=== PATIENT | female | born 1950 | race Caucasian/White ===

== ENCOUNTER → 2018-04-08 13:57 | Outpatient (CLI) | payer MEDICARE, BC, SELFPAY | PROVIDERS: PCP Internal Medicine; Visit Provider Internal Medicine | DX: M85.852 Other specified disorders of bone density and structure, left thigh (principal); Z78.0 Asymptomatic menopausal state | CPT/HCPCS: 77080 ==

== ENCOUNTER → 2018-10-03 08:15 | Outpatient (CLI) | payer MEDICARE, BC, SELFPAY ==
[2018-10-03 09:44] LABS: Alanine Aminotransferase 33 IU/L (9-52); Aspartate Aminotransferase 22 IU/L (14-36); Blood Urea Nitrogen 21 mg/dL (7-17); Calcium 10.2 mg/dL (8.4-10.2); Carbon Dioxide 29 mmol/L (22-32); Chloride 102 mmol/L (98-107); Cholesterol 193 mg/dL (140-199); Glucose 96 mg/dL (80-110); HDL Cholesterol 69 mg/dL (40-60); HEMOLYSIS < 15 (0-50); LDL Cholesterol Calculated 103 mg/dL (<100); Potassium 4.7 mmol/L (3.4-5.1); Sodium 141 mmol/L (137-145); Triglycerides 103 mg/dL (35-150)
== END ==
PROVIDERS: PCP Internal Medicine; Visit Provider Internal Medicine
DX: R73.01 Impaired fasting glucose (principal); E78.5 Hyperlipidemia, unspecified
CPT/HCPCS: 36415; 80048; 80061; 84450; 84460

== ENCOUNTER → 2018-12-04 11:38 | Outpatient (CLI) | payer MEDICARE, BC, SELFPAY ==
--- NOTE | 2018-12-04 | DI.MG.S_ITS ---
BILATERAL DIGITAL SCREENING MAMMOGRAM 3D/2D WITH CAD: 12/04/2018 Comparison is made to exams dated: 09/03/2017 mammogram, 03/22/2016 mammogram, and 03/21/2015 mammogram - [facility]. The tissue of both breasts is predominantly fatty. Current study was also evaluated with a Computer Aided Detection (CAD) system. No significant masses, calcifications, or other findings are seen in either breast. There has been no significant interval change. IMPRESSION: NEGATIVE There is no mammographic evidence of malignancy. A 1 year screening mammogram is recommended. This exam was interpreted at Station ID: [id number]. NOTE: For mammograms, a report in lay terms will be sent to the patient. Approximately 15% of breast malignancies will not be visualized mammographically. In the management of a palpable breast mass, a negative mammogram must not discourage biopsy of a clinically suspicious lesion. Electronically Signed By: Theo suarez/osmin:12/04/2018 13:06:50 copy to: Giselle Jacob MD, [facility] letter sent: Normal Exam ACR BI-RADS Category 1: Negative 3341F
== END ==
PROVIDERS: PCP Internal Medicine; Visit Provider Internal Medicine
DX: Z12.31 Encounter for screening mammogram for malignant neoplasm of breast (principal)
CPT/HCPCS: 77063; 77067

== ENCOUNTER → 2019-07-30 14:39 | Outpatient (ROUT) | payer MEDICARE, BC, SELFPAY ==
[2019-07-30 15:05] LABS: Alanine Aminotransferase 27 IU/L (<35); Aspartate Aminotransferase 30 IU/L (14-36); Cholesterol 185 mg/dL (140-199); HDL Cholesterol 65 mg/dL (40-60); LDL Cholesterol Calculated 102 mg/dL (<100); Triglycerides 91 mg/dL (35-150)
== END ==
PROVIDERS: PCP Internal Medicine; Visit Provider Internal Medicine
DX: E78.5 Hyperlipidemia, unspecified (principal)
CPT/HCPCS: 80061; 84450; 84460

== ENCOUNTER → 2021-01-09 10:35 | Outpatient (CLI) | payer MEDICARE, BC, SELFPAY ==
--- NOTE | 2021-01-09 10:36 | DI.MG.S_ITS ---
BILATERAL DIGITAL SCREENING MAMMOGRAM 3D/2D WITH CAD: 01/09/2021 CLINICAL: Routine screening. Comparison is made to exams dated: 12/04/2018 mammogram - [facility], 09/03/2017 mammogram, 03/22/2016 mammogram, and 03/21/2015 mammogram - [facility]. There are scattered fibroglandular elements in both breasts. Current study was also evaluated with a Computer Aided Detection (CAD) system. No significant masses, calcifications, or other findings are seen in either breast. There has been no significant interval change. IMPRESSION: NEGATIVE There is no mammographic evidence of malignancy. A 1 year screening mammogram is recommended. This exam was interpreted at Station ID: [id number]. NOTE: For mammograms, a report in lay terms will be sent to the patient. Approximately 15% of breast malignancies will not be visualized mammographically. In the management of a palpable breast mass, a negative mammogram must not discourage biopsy of a clinically suspicious lesion. Electronically Signed By: Kashmir pearson/osmin:01/09/2021 11:45:24 copy to: Giselle Jacob MD, [facility] letter sent: Normal Exam ACR BI-RADS Category 1: Negative 3341F
== END ==
PROVIDERS: PCP Internal Medicine; Referring Provider Internal Medicine; Visit Provider Internal Medicine
DX: Z12.31 Encounter for screening mammogram for malignant neoplasm of breast (principal)
CPT/HCPCS: 77063; 77067

== ENCOUNTER → 2021-12-13 08:14 | Outpatient (CLI) | payer MEDICARE, BC, SELFPAY ==
[2021-12-13 09:20] LABS: Add Manual Diff / Slide Review NO; Basophils Absolute Auto 100 /uL (0-100); Basophils Percent Auto 0.7 % (0-2); Eosinophils Absolute Auto 100 /uL (0-450); Eosinophils Percent Auto 0.8 % (2-4); Hematocrit 38.7 % (36-46); Hemoglobin 13.3 g/dL (12.0-16.0); Lymphocytes Absolute Auto 1600 /uL (1100-4500); Lymphocytes Percent Auto 19.8 % (25-40); Mean Corpuscular HGB Conc 34.5 % (30-36); Mean Corpuscular Volume 95.6 fL (80-100); Monocytes Absolute Auto 500 /uL (0-900); Monocytes Percent Auto 5.9 % (3-14); Neutrophils Absolute Auto 5900 /uL (1500-7000); Neutrophils Percent Auto 72.8 % (50-75); Platelet Count 230 X10^3/uL (150-400); Red Blood Cell Count 4.04 X10^6/uL (4.0-5.2); Red Cell Distribution Width 12.9 % (11.6-14.8); White Blood Cell Count 8.1 X10^3/uL (4.5-11.0)
[2021-12-13 10:01] LABS: Alanine Aminotransferase 43 IU/L (<35); Albumin 4.3 g/dL (3.5-5.0); Albumin Globulin Ratio 1.7 (1.0-2.8); Alkaline Phosphatase 57 U/L (38-126); Aspartate Aminotransferase 27 IU/L (14-36); BUN Creatinine Ratio 17.5 (6-22); Bilirubin Total 0.8 mg/dL (0.2-1.3); Blood Urea Nitrogen 14 mg/dL (7-17); Calcium 9.9 mg/dL (8.4-10.2); Carbon Dioxide 29 mmol/L (22-32); Chloride 102 mmol/L (98-107); Cholesterol 179 mg/dL (140-199); Estimated Glomerular Filt Rate > 60.0 mL/min (>60); Globulin 2.5 g/dL (1.7-4.1); Glucose 109 mg/dL (80-110); HDL Cholesterol 63 mg/dL (40-60); HEMOLYSIS < 15 (0-50); LDL Cholesterol Calculated 95 mg/dL (<100); Potassium 4.1 mmol/L (3.4-5.1); Sodium 138 mmol/L (137-145); Total Protein 6.8 g/dL (6.3-8.2); Triglycerides 105 mg/dL (35-150); VLDL Cholesterol Calculated 21 mg/dL (2-30)
[2021-12-13 10:21] LABS: Thyroid Stimulating Hormone 1.43 uIU/mL (0.47-4.68)
== END ==
PROVIDERS: Family Provider Family Medicine; PCP Internal Medicine; Referring Provider Family Medicine; Visit Provider Family Medicine
DX: Z13.6 Encounter for screening for cardiovascular disorders (principal); Z13.29 Encounter for screening for other suspected endocrine disorder; Z13.228 Encounter for screening for other metabolic disorders; Z13.0 Encounter for screening for diseases of the blood and blood-forming organs and certain disorders involving the immune mechanism
CPT/HCPCS: 36415; 80053; 80061; 84439; 84443; 85025

== ENCOUNTER → 2022-01-11 15:19 | Outpatient (CLI) | payer MEDICARE, BC, SELFPAY ==
--- NOTE | 2022-01-11 | DI.MG.S_ITS ---
BILATERAL DIGITAL SCREENING MAMMOGRAM 3D/2D WITH CAD: 01/11/2022 CLINICAL: Routine screening. Comparison is made to exams dated: 01/09/2021 mammogram, 12/04/2018 mammogram - [facility], and 09/03/2017 [facility]. There are scattered fibroglandular elements in both breasts. Current study was also evaluated with a Computer Aided Detection (CAD) system. No significant masses, calcifications, or other findings are seen in either breast. There has been no significant interval change. IMPRESSION: NEGATIVE There is no mammographic evidence of malignancy. A 1 year screening mammogram is recommended. This exam was interpreted at Station ID: [id number]. NOTE: For mammograms, a report in lay terms will be sent to the patient. Approximately 15% of breast malignancies will not be visualized mammographically. In the management of a palpable breast mass, a negative mammogram must not discourage biopsy of a clinically suspicious lesion. Electronically Signed By: Omar Singh M.D., jr/osmin:01/11/2022 15:46:43 copy to: Giselle Jacob MD, [facility] letter sent: Normal Exam ACR BI-RADS Category 1: Negative 3341F
== END ==
PROVIDERS: Family Provider Family Medicine; PCP Internal Medicine; Referring Provider Family Medicine; Visit Provider Family Medicine
DX: Z12.31 Encounter for screening mammogram for malignant neoplasm of breast (principal)
CPT/HCPCS: 77063; 77067

== ENCOUNTER → 2023-01-12 | Outpatient (CLI) | payer MEDICARE, BC, SELFPAY ==
--- NOTE | 2023-01-12 | DI.MG.S_ITS ---
BILATERAL DIGITAL SCREENING MAMMOGRAM 3D/2D WITH CAD: 01/12/2023 CLINICAL: Routine screening. Family history of breast cancer. Comparison is made to exams dated: 01/11/2022 mammogram, 01/09/2021 mammogram, and 12/04/2018 mammogram - [facility]. Both breasts are almost entirely fatty (category a/<25% glandular tissue). Current study was also evaluated with a Computer Aided Detection (CAD) system. No significant masses, calcifications, or other findings are seen in either breast. There has been no significant interval change. IMPRESSION: NEGATIVE There is no mammographic evidence of malignancy. A 1 year screening mammogram is recommended. Based on the Tyrer Cuzick model (a risk assessment model) the patient's lifetime risk is 2.5% and her 10 year risk is 2.1%. According to the ACR, ACS, and NCCN guidelines, an annual breast MRI exam along with mammogram is recommended if the patient's lifetime risk is 20% or greater. This exam was interpreted at Station ID: [id number]. NOTE: For mammograms, a report in lay terms will be sent to the patient. Approximately 15% of breast malignancies will not be visualized mammographically. In the management of a palpable breast mass, a negative mammogram must not discourage biopsy of a clinically suspicious lesion. Electronically Signed By: Radha solorzano/osmin:01/14/2023 11:57:23 copy to: Giselle Jacob MD, [facility] letter sent: Normal Exam ACR BI-RADS Category 1: Negative 3341F
== END ==
PROVIDERS: Family Provider Family Medicine; PCP Internal Medicine; Referring Provider Family Medicine; Visit Provider Family Medicine
DX: Z12.31 Encounter for screening mammogram for malignant neoplasm of breast (principal); Z80.3 Family history of malignant neoplasm of breast
CPT/HCPCS: 77063; 77067

== ENCOUNTER → 2023-02-26 10:27 | Outpatient (CLI) | payer MEDICARE, BC, SELFPAY ==
--- NOTE | 2023-02-26 | DI.RAD.S_ITS ---
PROCEDURE: XR SHOULDER RT MIN 2V INDICATIONS: SHOULDER PAIN TECHNIQUE: 3 views of the shoulder were acquired. COMPARISON: None. FINDINGS: Bones: No fractures or dislocations. No suspicious bony lesions. Visualized ribs appear intact. Soft tissues: No suspicious soft tissue calcifications. IMPRESSION: Unremarkable right shoulder radiographs Approved by: Duy Navas M.D. on 02/26/2023 at 10:32
--- NOTE | 2023-02-26 | DI.RAD.S_ITS ---
PROCEDURE: XR LUMBAR SPINE 2-3V INDICATIONS: BACK PAIN TECHNIQUE: 3 views of the lumbar spine were acquired. COMPARISON: None. FINDINGS: Bones: 5 [id number] vertebrae are present. There is normal bony alignment. No vertebral body compression fractures. No suspicious bony lesions. Disc space narrowing hypertrophic facet joints noted in the mid to lower lumbar spine Soft tissues: Overlying bowel gas pattern is normal. No suspicious soft tissue calcifications. Text atherosclerotic vascular calcification. Surgical clips noted in the right upper quadrant. IMPRESSION: Degenerative disc disease and arthropathy without fracture or if significant malalignment Approved by: Duy Navas M.D. on 02/26/2023 at 10:36
== END ==
PROVIDERS: Family Provider Family Medicine; PCP Internal Medicine; Referring Provider Internal Medicine; Visit Provider Internal Medicine
DX: M51.36 Other intervertebral disc degeneration, lumbar region (principal); M47.816 Spondylosis without myelopathy or radiculopathy, lumbar region; M25.511 Pain in right shoulder; M54.50 Low back pain, unspecified
CPT/HCPCS: 72100; 73030

== ENCOUNTER → 2023-04-23 11:08 | Outpatient (CLI) | payer MEDICARE, BC, SELFPAY ==
--- NOTE | 2023-04-23 11:46 | DI.DEXA.S_ITS ---
Bone Density Report Name: RENE BONDS Age: 72 Sex: Female Ethnicity: White Date of : 1950 Indication: postmenopausal; screening for osteoporosis; Referring Provider: ARASH LAZO Study: Bone densitometry was performed. Exam Date: April 23, 2023 Accession number: [id number] Bone Density: Region BMD T-score Z-score Classification AP Spine(L1-L4) 0.981 -0.6 1.7 Normal Femoral Neck (Left) 0.722 -1.1 0.9 Osteopenia Total Hip (Left) 0.754 -1.5 0.2 Osteopenia Femoral Neck (Right) 0.673 -1.6 0.4 Osteopenia Total Hip (Right) 0.788 -1.3 0.4 Osteopenia Total Hip Mean 0.771 -1.4 0.3 Osteopenia World Health Organization criteria for BMD impression classify patients as: Normal (T-score at or above -1.0), Osteopenia (T-score between -1.0 and -2.5), or Osteoporosis (T-score at or below -2.5). 10-year Fracture Risk(1): Major Osteoporotic Fracture 10% Hip Fracture 1.8% Reported Risk Factors: [place] (), Neck BMD=0.673, BMI=32.6 (1) FRAX(R) Version 3.08. Fracture probability calculated for an untreated patient. Fracture probability may be lower if the patient has received treatment. Previous Exams: -- Region Exam Age BMD T-score BMD Change BMD Change Date g/cm2 vs Baseline vs Previous -- AP Spine (L1-L4) 04/23/2023 72 0.981 -0.6 -0.109 (-10.0%)# -0.109 (-10.0%)# 04/08/2018 67 1.089 0.4 Total Hip(Left) 04/23/2023 72 0.754 -1.5 -0.066 (-8.1%)# -0.066 (-8.1%)# 04/08/2018 67 0.820 -1.0 Total Hip(Right) 04/23/2023 72 0.788 -1.3 -0.077 (-8.9%)# -0.077 (-8.9%)# 04/08/2018 67 0.865 -0.6 -- *Denotes significance at 95% confidence level, LSC for AP Spine = 0.022 g/cm2, LSC for Total Hip = 0.027 g/cm2 # Denotes dissimilar scan types or analysis methods Impression: The patient has low bone mass, based on the Right Femoral Neck T-score. The patient has an estimated ten-year risk of hip fracture of 1.8% and an estimated ten-year risk of major fracture of 10%, based on the WHO FRAX algorithm. No significant bone loss was observed. Discussion: BONE DENSITY IS LOW AT ONE OR MORE SKELETAL SITES. This patient's lowest T-score is low at one or more skeletal sites. It meets the World Health Organization's (WHO) criteria for ?low bone mass? (T-score between -1.0 and -2.5). The patient's 10-year risk of fracture as calculated by FRAX is less than the threshold where pharmacological therapy is recommended by the National Osteoporosis Foundation (NOF). However, all treatment decisions require clinical judgment and consideration of individual patient factors, including patient preferences, comorbidities, previous drug use, risk factors not captured in the FRAX model (e.g., frailty, falls, vitamin D deficiency, increased bone turnover, interval significant decline in bone density) and possible under or overestimation of fracture risk by FRAX. The patient should follow a healthful lifestyle (good nutrition with adequate calcium and vitamin D, and appropriate weight-bearing exercise). Follow-Up: Consider repeating this study in 2 to 3 years to reassess this patient's status, or sooner if there is some new clinical indication. Reported by: MARIAH LANDRY M.D. on 04/23/2023 11:58:00 AM.
== END ==
PROVIDERS: Family Provider Family Medicine; PCP Internal Medicine; Referring Provider Family Medicine; Visit Provider Family Medicine
DX: Z78.0 Asymptomatic menopausal state (principal); Z13.820 Encounter for screening for osteoporosis; M85.851 Other specified disorders of bone density and structure, right thigh
CPT/HCPCS: 77080

== ENCOUNTER → 2024-01-15 11:17 | Outpatient (CLI) | payer MEDICARE, OTHER, SELFPAY ==
--- NOTE | 2024-01-15 11:20 | DI.MG.S_ITS ---
BILATERAL DIGITAL SCREENING MAMMOGRAM 3D/2D WITH CAD: 01/15/2024 CLINICAL: Routine screening. Family history of breast cancer. Comparison is made to exams dated: 01/12/2023 mammogram, 01/11/2022 mammogram, and 01/09/2021 mammogram - [facility]. Both breasts are almost entirely fatty (category a/<25% glandular tissue). Current study was also evaluated with a Computer Aided Detection (CAD) system. No significant masses, calcifications, or other findings are seen in either breast. There has been no significant interval change. IMPRESSION: NEGATIVE There is no mammographic evidence of malignancy. A 1 year screening mammogram is recommended. Based on the Tyrer Cuzick model (a risk assessment model) the patient's lifetime risk is 2.4% and her 10 year risk is 2.1%. According to the ACR, ACS, and NCCN guidelines, an annual breast MRI exam along with mammogram is recommended if the patient's lifetime risk is 20% or greater. This exam was interpreted at Station ID: [id number]. NOTE: For mammograms, a report in lay terms will be sent to the patient. Approximately 15% of breast malignancies will not be visualized mammographically. In the management of a palpable breast mass, a negative mammogram must not discourage biopsy of a clinically suspicious lesion. Electronically Signed By: Hiwot santos/osmin:01/15/2024 12:44:03 letter sent: Normal Exam ACR BI-RADS Category 1: Negative 3341F
== END ==
PROVIDERS: Family Provider Family Medicine; PCP Internal Medicine; Referring Provider Internal Medicine; Visit Provider Internal Medicine
DX: Z12.31 Encounter for screening mammogram for malignant neoplasm of breast (principal); Z80.3 Family history of malignant neoplasm of breast; R92.313 Mammographic fatty tissue density, bilateral breasts
CPT/HCPCS: 77063; 77067

== ENCOUNTER → 2024-08-24 13:26 | Outpatient (CLI) | payer MEDICARE, SELFPAY ==
[2024-08-24 13:58] LABS: Add Manual Diff / Slide Review NO; Basophils Absolute Auto 100 /uL (0-100); Basophils Percent Auto 1.4 % (0-2); Eosinophils Absolute Auto 100 /uL (0-450); Eosinophils Percent Auto 1.1 % (2-4); Hematocrit 41.8 % (36-46); Lymphocytes Absolute Auto 2000 /uL (1100-4500); Lymphocytes Percent Auto 26.6 % (25-40); Mean Corpuscular HGB Conc 33.4 % (30-36); Mean Corpuscular Hemoglobin 31.5 PG (26-34); Mean Corpuscular Volume 94.3 fL (80-100); Monocytes Absolute Auto 500 /uL (0-900); Neutrophils Absolute Auto 4800 /uL (1500-7000); Neutrophils Percent Auto 63.9 % (50-75); Platelet Count 281 X10^3/uL (150-400); Red Blood Cell Count 4.43 X10^6/uL (4.0-5.2); White Blood Cell Count 7.5 X10^3/uL (4.5-11.0)
[2024-08-24 14:19] LABS: C-Reactive Protein Quant < 0.5 mg/dL (<1.0)
[2024-08-24 15:04] LABS: Erythrocyte Sedimentation Rate 23 MM/HR (0-20)
[2024-08-27 23:36] LABS: Immunoglobulin E 16 IU/mL (6-495)
== END ==
PROVIDERS: Family Provider Family Medicine; PCP Internal Medicine; Referring Provider Physician Assistant; Visit Provider Physician Assistant
DX: T78.40XA Allergy, unspecified, initial encounter (principal)
CPT/HCPCS: 36415; 82785; 83520; 85025; 85651; 86140

== ENCOUNTER 2025-07-07 10:45 | Outpatient (RCR) | payer MEDICARE, SELFPAY ==
--- NOTE | 2025-04-30 14:42 | ST.OPIE ---
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 Abraham Rea, ENT Reason for Referral Dysphagia; hoarseness Setting Assessment Location Outpatient Care Visit Type Note Type Initial evaluation Next Note Type Next Note Type Treatment Note Patient Information Identification Type Name History Pt is a 74 year old female seen this date for swallow/ voice evaluation by the referral of Dr. Rea. She is accompanied by her . Pt reports she has noticed changes to her voice and swallow within the past 6 months. Specifically, she states her voice box is changing and sounds muffled and yuval. She reports increased difficulty swallowing, especially during the day and with washer operator textures such as meat. She states she has lost about 60 pounds in the past 6 years and 15 pounds this year. 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 She also has a history of Asthma, and GERD and takes Omeprazole daily. Pt reports her goals for therapy are to improve her swallow and voice quality. Subjective Pt transferred via wheelchair d/t her reporting back/ Observations neck pains, frozen shoulders and neuropathy in her feet and hands. She is following up with a Neurologist. Pt lives with her . Reported by Patient/Caregiver Other Symptoms Choking,Coughing,Difficulty swallowing pills,Difficulty swallowing solids,Food gets stuck Current Diet Regular (IDDSI 7) Baseline Feeding Independent in self-feeding Method The IDDSI Framework Protocol: IDDSI.1 Objective Assessment Mental Status Alert,Responsive,Cooperative Oral Integrity WFL Dentition Within normal limits Lip Function Within normal limits Observation of Lips Symmetrical at Rest Pucker Within normal limits Lip Retraction Within normal limits Alternating Pucker/ Within normal limits Lip Retraction Observations of Within normal limits Tongue at Rest Tongue Protrusion Within normal limits Tongue Retraction Within normal limits Jaw Function Within normal limits Observation of Jaw Within normal limits at Rest Jaw Opening Within normal limits Jaw Closing Within normal limits Nasality Within normal limits Respiratory Within normal limits Sufficiency Food and Liquid Trials Position During Upright (90 degrees) Assessment Liquids Trialed Thin (IDDSI 0) Solid Trials Soft & Bite-sized (IDDSI 6) Administration Type Self-feeding Oral Impairment Within functional limits Oral Phase Comments Pt did not consume priti cracker/saltine d/t her reporting they would be too dry and get stuck in her throat. She reports she always needs water to clear food stuck in her throat and feels like there's a shelf in her throat they get stuck on. Pt consumed diced peaches and about 4 oz of thin water via cup. For peaches, she exhibited adequate bite size and rate, adequate mastication and bolus formation, timely ap transport. For thin liquids via cup, Pt exhibited single cup sips, alternating liquids/solids, good oral acceptance and containment. Pharyngeal Mildly impaired Impairment Pharyngeal Phase Pt exhibited 1x cough reflex post swallow of water and Comments stated this only happens when she is talking and eating /drinking at the same time. For peaches, she exhibited audible swallow reflex, multiple swallows, globus sensation reported x1 cleared with liquid wash, throat clear x1. Fatigue/Endurance Endurance WNL The IDDSI Framework Protocol: IDDSI.1 Findings Swallowing Function Pharyngeal phase dysphagia Severity of Swallow Mildly-moderately impaired Impairment Prognosis Good Based on Family support Recommendations Instrumental Yes Assessment Swallowing Treatment Yes Frequency 1x/week Duration 3 months Recommended Solids Regular (IDDSI 7) Recommended Liquids Thin (IDDSI 0) Other ST recommends regular solids and thin liquids, or per Recommendations Pt tolerance. ST educated Pt on options to cut pills in half or get liquid versions. ST educated Pt and her on recommendation for her to have Modified Barium Swallow (MBS) test and what the next steps for that are, which include ST contacting her PCP for an order and then getting the test scheduled. ST recommended they proceed with treatment once MBS is completed. ST also educated Pt on safe swallow strategies and GERD precautions. Pt and her verbalized understanding. Safety Precautions/ Remain upright (90 degrees) during all oral intake, Swallowing Upright position at least 30 minutes after meals,Small Recommendations bites and sips when eating,Slow rate; swallow between bites,Alternate liquids and solids Medication As Tolerated Recommendations Discharge Home Recommendations Education Patient/Caregiver Described results of evaluation,Patient expressed Education understanding of evaluation,Patient expressed agreement with goals & treatment plans,Family/caregivers expressed understanding of evaluation,Family/caregivers expressed agreement with goals & treatment plans, Patient requires further education/training,Family/ caregivers require further education/training Goals Short-term Goals STG 1: Pt will participate in MBS to further guide POC. Long-term Goals LTG 1: Patient will consume safest and most efficient least restrictive diet with no clinical s/s of aspiration or dysphagia 100% of the time in order to meet primary nutrition/hydration needs.
--- NOTE | 2025-04-30 14:42 | ST.OPPOC ---
Physical, Occupational & Speech Therapy At [facility] Visit Care Team Role Provider Type Poppy Ng MD Primary Care Provider Physician Address: [place], [address] Abraham Rea MD Attending Provider Physician Referring Provider Address: [address] [place] [address], [id number] Speech Pathology Plan of Care Plan of Care Dates 04/30/25-07/31/[address] Abraham Rea, ENT Patient History Pt is a 74 year old female seen this date for swallow/voice evaluation by the referral of Dr. Rea. She is accompanied by her . Pt reports she has noticed changes to her voice and swallow within the past 6 months. Specifically, she states her voice box is changing and sounds muffled and yuval. 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 She states she has lost about 60 pounds in the past 6 years and 15 pounds this year. 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 She also has a history of Asthma, and GERD and takes Omeprazole daily. Pt reports her goals for therapy are to improve her swallow and voice quality. Short-term Goals STG 1: Pt will participate in MBS to further guide POC. Long-term Goals LTG 1: Patient will consume safest and most efficient least restrictive diet with no clinical s/s of aspiration or dysphagia 100% of the time in order to meet primary nutrition/ hydration needs. Comment: Electronically Signed by: TYSON Gipson 04/30/25 4231 If you are in agreement with this Plan of Care, please return a signed and dated copy. I have reviewed this Plan of Care and certify that the skilled therapy services above are required to meet the patient?s needs. Physician Signature Date Printed Name and Credentials Clinical Instructor Signature Printed Name and Credentials
--- NOTE | 2025-05-20 12:06 | ST.IPDYTX ---
Visit Care Team Role Provider Type Poppy Ng MD Primary Care Provider Physician Specialty: Internal Medicine Address: [place], [address] Email: Abraham Rea MD Attending Provider Physician Referring Provider Specialty: Ear, Nose, Throat Address: [address] [place] [address] [place], [address] Email: [email or web address] DIRECTOR SALES [employer]ETING Dysphagia Treatment DIRECTOR [employer] MARKETING Dysphagia Treatment Start: 05/20/25 11:44 Freq: Status: Active Protocol: Document 05/20/25 11:44 MA (Rec: 05/20/25 12:06 MA Desktop) Dysphagia Treatment Session Time Visit Start Time 10:45 Visit Stop Time 11:25 Total Visit Minutes 40 Visit Information Visit Number 2 Plan of Care Dates 04/30/25-07/31/25 Setting Assessment Location Outpatient Care Next Note Type Next Note Type Treatment Note Patient Information Subjective Pt transferred via wheelchair d/t her reporting back/ Observations neck pains, frozen shoulders and neuropathy in her feet and hands. Pt is accompanied by her . Pt was a little emotional at the beginning of the session, characterized by her crying, d/t her reporting she saw the Neurologist yesterday and is getting a work up for ALS. Pt reports she will be having an EMG and MRI done, as well as seeing a Longshore Equipment Operator. Treatment Treatment Activities ST reviewed MBS results with patient, which was completed 05/13. Please see report for more details. ST educated Pt on swallow exercises to complete as part of home exercise program and safe swallowing exercises. The IDDSI Framework Protocol: IDDSI.1 Assessment Patient Response to Excellent Treatment Rehab Potential Excellent Assessment of ST educated Pt on hyolaryngeal swallow exercises in Improvement order to strengthen base of tongue, improve UES opening and epiglottic inversion. ST instructed Pt on Kanchan, effortful swallow, Antionette, and chin tuck against resistance. Pt able to demonstrate back with 100% accuracy. ST recommended Pt purchase neck slimmer online for CTAR exercises, or utilize a rubber ball or towels balled up under chin. Pt reports she has been utilizing chin tuck at home when drinking liquids, which helps with clearance. She states she has been losing weight d/t eating being exhausting, however working on not losing more weight and has purchased some protein powder. She inquired about a mold dresser and recommended she talk with her PCP. Pt reports she has an appointment with a GI doctor to discuss UES dilatation on 05/28. ST educated Pt on additional safe swallowing strategies, such as slow rate, small bites, alternating liquids/solids and remaining upright for at least [address] educated Pt on plan to initiate Neuromuscular Electrical Stimulation (NMES) during next session to strengthen pharyngeal muscles. Pt verbalized understanding. Recommendations Recommendations Continue Current Diet Liquids Order Thin (IDDSI 0) Diet Order Regular (IDDSI 7) Medication As Tolerated Recommendations
--- NOTE | 2025-06-30 13:37 | ST-OP ANOTE ---
Physical, Occupational & Speech Therapy At [facility] Speech Therapy Note Pt No Showed this date. ST called Pt who reports she forgot about today's appointment and has had to cancel other appointments because of a bad reaction to a new medication. She reports she most likely has ALS but has not officially been diagnosed yet. ST informed Pt of her next appointment with Pt verbally confirming.
--- NOTE | 2025-07-07 16:31 | ST.IPDYTX ---
Visit Care Team Role Provider Type Poppy Ng MD Primary Care Provider Physician Specialty: Internal Medicine Address: [place], [address] Email: Abraham Rea MD Attending Provider Physician Referring Provider Specialty: Ear, Nose, Throat Address: [address] [place] [address], [id number] Email: [email or web address] ENGINEERING PROFESSOR Dysphagia Treatment ENGINEERING PROFESSOR Dysphagia Treatment Start: 05/20/25 11:44 Freq: Status: Active Protocol: Document 07/07/25 16:16 MA (Rec: 07/07/25 16:31 MA Desktop) Dysphagia Treatment Session Time Visit Start Time 10:45 Visit Stop Time 11:25 Total Visit Minutes 40 Visit Information Visit Number 3 Plan of Care Dates 04/30/25-07/31/25 Setting Assessment Location Outpatient Care Next Note Type Next Note Type Treatment Note Patient Information Subjective Pt transferred via wheelchair d/t her reporting back/ Observations neck pains, frozen shoulders and neuropathy in her feet and hands. Pt is accompanied by her . Pt missed several appointments d/t getting sick and having a reaction to a new medication she was put on. Pt had an EMG completed, however has declined the MRI and is still waiting to see the endoscopy registered nurse. She states she will be seeing the Neurologist on 07/12 and most likely knows she has ALS, however has not been 100% confirmed . Pt reports she has come to a good place mentally and emotionally with it and is trying to enjoy life while she can. Treatment Treatment Activities Check in and review in regards to current swallow function and home swallow exercise program and going forward with therapy. The IDDSI Framework Protocol: IDDSI.1 Assessment Patient Response to Excellent Treatment Rehab Potential Excellent Assessment of Pt reports she has noticed improvements with her Improvement swallowing, especially due to her being more deliberate and aware of her swallow and eating slowly. No PO trials at this time d/t majority of treatment time checking in and reviewing swallow exercises. However, Pt with occasional audible swallow reflex one saliva. Pt reports she has been doing her swallowing exercises, and notices improvements with Kanchan exercise. She states discomfort with CTAR with ST advising Pt to not continue exercise if she is experiencing pain or discomfort. ST recommended she continue with home exercise program involving swallow exercises. ST educated Pt on plan to initiate Neuromuscular Electrical Stimulation (NMES) during next session to strengthen pharyngeal muscles. Pt verbalized understanding. Recommendations Recommendations Continue Current Diet Liquids Order Thin (IDDSI 0) Diet Order Regular (IDDSI 7) Medication As Tolerated Recommendations Comments No change in diet at this time - Pt currently on soft diet Referrals/Other Recommended Neurology,GI Consult Referrals
== END 2025-07-21 09:54 | disposition home or self-care (01) ==
LOC: SP 10:45
PROVIDERS: PCP Internal Medicine; Referring Provider Otolaryngology; Visit Provider Otolaryngology
DX: R13.12 Dysphagia, oropharyngeal phase (principal); R49.0 Dysphonia
CPT/HCPCS: 92526; 92610

== ENCOUNTER 2025-07-11 00:04 | Inpatient (IN) | payer MEDICARE, SELFPAY ==
--- NOTE | 2025-07-10 23:51 | ED_ITS ---
HPI - Trauma <Jason Rodríguez, DO - Last Filed: 07/11/25 17:46> General Chief Complaint: Fall Stated Complaint: GLF History of Present Illness HPI narrative: 74y female recently diagnosed with ALS, hypothyroid, asthma, dyslipidemia was going to the bathroom without her walker when she had a fall hitting her head against the floor with complaints of nausea, headache, back pain. She denies any loss of consciousness, chest pain, shortness breath, dyspnea on exertion, bowel or bladder incontinence, abdominal pain. Other than what is stated 14 point review of system is negative. Related Data Home Medications ?Medication ?Instructions ?Recorded ?Confirmed albuterol sulfate 90 mcg/actuation 1 puff inhalation O NCE 04/23/25 04/23/25 aerosol inhaler (Ventolin HFA) levothyroxine 13 mcg capsule 13 mcg PO DAILY 04/23/25 04/23/25 mometasone-formoterol HFA 200 2 puff inhalation BID 04/23/25 mcg-5 mcg/actuation aerosol inhaler (Dulera) omeprazole 20 mg tablet,delayed 20 mg PO DAILY 5 04/23/25 release propranolol 10 mg tablet 20 mg PO DAILY Essential shena mor 04/23/25 04/23/25 rosuvastatin 10 mg tablet 10 mg PO DAILY 04/23/2510/17 Allergies Allergy/AdvReac Type Severity Reaction Status Date / Time codeine Allergy Severe Anaphylaxis Verified 07/11/25 00:11 morphine AdvReac Mild Rash Verified 07/11/25 00:11 Sulfa (Sulfonamide AdvReac Mild Rash Verified 07/11/25 00:11 Antibiotics) Review of Systems <Jason Rodríguez, DO - Last Filed: 07/11/25 17:46> Review of Systems ROS Unobtainable: All systems reviewed & are unremarkable except as noted in HPI and below Patient History <Jason Rodríguez, DO - Last Filed: 07/11/25 17:46> Medical History Fasciculations Tremor Ataxic gait Atrophy of muscle of both hands Weakness Paresthesia Social History household members: spouse alcohol intake: never Exam <Jason Rodríguez DO - Last Filed: 07/11/25 17:46> Narrative Exam Narrative: GENERAL: [74] year old patient appears stated age. Well-developed patient, in mild distress. HEAD: Atraumatic. Normocephalic. EYES: Pupils equal round and reactive. Extraocular motions intact. No scleral icterus. No injection or drainage. ENT: Nose without bleeding, purulent drainage. Throat without erythema, tonsillar hypertrophy or exudate. Airway patent. NECK: Trachea midline. Non tender CARDIOVASCULAR: Regular rate and rhythm without murmurs, gallops, or rubs. RESPIRATORY: Clear to auscultation. Breath sounds equal bilaterally. No wheezes, rales, or rhonchi. GASTROINTESTINAL: Abdomen soft, non-tender, nondistended. EXTREMITIES: No edema or joint tenderness. BACK: Nontender without deformity or crepitance. No flank tenderness. NEURO: AOx3. SKIN: Scalp hematoma back of head with superficial laceration but no area to suture or staple Initial Vital Signs Initial Vital Signs: Vital Signs Temperature 97.8 F 07/11/25 00:02 Pulse Rate 91 H 07/11/25 00:02 Respiratory Rate 24 07/11/25 00:02 Blood Pressure 179/86 H 07/11/25 00:02 Pulse Oximetry 95 07/11/25 00:02 Oxygen Delivery Method Room Air 07/11/25 00:02 <Bree Verdin, DO - Last Filed: 07/11/25 18:32> Initial Vital Signs Initial Vital Signs: Vital Signs Temperature 97.8 F 07/11/25 00:02 Pulse Rate 91 H 07/11/25 00:02 Respiratory Rate 24 07/11/25 00:02 Blood Pressure 179/86 H 07/11/25 00:02 Pulse Oximetry 95 07/11/25 00:02 Oxygen Delivery Method Room Air 07/11/25 00:02 Course <Jason Rodríguez, DO - Last Filed: 07/11/25 17:46> Orders Ordered: ED Orders 07/11/25 16:04 [facility] Creatine Kinase MB Routine 07/11/25 16:04 Consult to Occupational Therapy Evaluate & Treat Consult to Physical Therapy Evaluate & Treat 07/11/25 18:05 Basic Metabolic Panel Routine Complete Blood Count AUTO DIFF Routine Magnesium Routine Acetaminophen (Acetaminophen 325 Mg Tablet) 650 mg PO Q6H PRN PRN Reason: Fever/Mild Pain (1-3) Baclofen (Baclofen 10 Mg Tablet) 5 mg PO TID PRN PRN Reason: Muscle Spasm Lactated Ringer's (Lactated Ringers) 1,000 mls @ 125 mls/hr IV CONT TROY Naloxone HCl (Naloxone 0.4 Mg/Ml Vial) 0.2 mg IV Q2MIN PRN PRN Reason: Opiate Reversal Ondansetron HCl (Ondansetron 4 Mg/2 Ml Inj) 4 mg IV Q8HR PRN PRN Reason: Nausea And Vomiting Discontinued Medications Albuterol (Albuterol 2.5 Mg/3 Ml Neb (Adult)) 2.5 mg INH NOW ONE Stop: 07/11/25 02:24 Last Admin: 07/11/25 02:26 Dose: 2.5 mg Documented By: AMAYA Albuterol (Albuterol 2.5 Mg/3 Ml Neb (Adult)) 2.5 mg INH NOW ONE Stop: 07/11/25 11:16 Last Admin: 07/11/25 11:16 Dose: 2.5 mg Documented By: PEACE Albuterol/Ipratropium (Albuterol/Ipratropium 3 Ml Ampul) 3 ml INH NOW ONE Stop: 07/11/25 02:14 Last Admin: 07/11/25 02:27 Dose: Not Given Documented By: AMAYA Diphtheria/Tetanus/Acell Pertussis (Tet,Diph,Pertuss(Acell),Vac/Pf 0.5 Ml Syringe) 0.5 ml IM .ONCE ONE Stop: 07/11/25 00:15 Last Admin: 07/11/25 00:19 Dose: 0.5 ml Documented By: TOBY Hydromorphone HCl (Hydromorphone Hcl 0.5 Mg/0.5 Ml Syringe) 0.5 mg IV NOW ONE Stop: 07/11/25 00:19 Last Admin: 07/11/25 00:22 Dose: 0.5 mg Documented By: TOBY Hydromorphone HCl (Hydromorphone Hcl 0.5 Mg/0.5 Ml Syringe) 0.5 mg IV NOW ONE Stop: 07/11/25 04:07 Last Admin: 07/11/25 04:19 Dose: 0.5 mg Documented By: TOBY Sodium Chloride (Normal Saline 0.9%) 500 mls @ 1,000 mls/hr IV BOLUS ONE Stop: 07/11/25 03:44 Last Infusion: 07/11/25 04:01 Dose: Infused Documented By: Admin: 07/11/25 03:20 Dose: 1,000 mls/hr Documented By: TOBY Lactated Ringer's (Lactated Ringers) 1,000 mls @ 125 mls/hr IV CONT TROY Last Admin: 07/11/25 15:29 Dose: 125 mls/hr Documented By: Infusion: 07/11/25 15:05 Dose: Infused Documented By: Admin: 07/11/25 07:05 Dose: 125 mls/hr Documented By: TOBY Magnesium Sulfate (Magnesium Sulfate) 2 gm in 50 mls @ 25 mls/hr IV NOW ONE Stop: 07/11/25 14:08 Last Infusion: 07/11/25 16:07 Dose: Infused Documented By: CIPRIANO Co-signed By: WAGNER Admin: 07/11/25 12:34 Dose: 25 mls/hr Documented By: WARREN Co-signed By: Lorazepam (Lorazepam 2 Mg/Ml Inj) 1 mg IV NOW ONE Stop: 07/11/25 11:48 Last Admin: 07/11/25 11:50 Dose: 1 mg Documented By: WARREN Magnesium Chloride (Magnesium Chloride 64 Mg Tablet) 128 mg PO 0930 ONE Stop: 07/11/25 09:31 Last Admin: 07/11/25 11:05 Dose: Not Given Documented By: WARREN Metoclopramide HCl (Metoclopramide 10 Mg/2 Ml Inj) 10 mg IV NOW ONE Stop: 07/11/25 01:05 Last Admin: 07/11/25 01:06 Dose: 10 mg Documented By: ZAIRE Metoprolol Tartrate (Metoprolol Tartrate 5 Mg/5 Ml Inj) 5 mg IV NOW ONE Stop: 07/11/25 12:24 Last Admin: 07/11/25 16:06 Dose: Not Given Documented By: CIPRIANO Ondansetron HCl (Ondansetron 4 Mg/2 Ml Inj) 4 mg IV NOW ONE Stop: 07/11/25 00:15 Last Admin: 07/11/25 00:20 Dose: 4 mg Documented By: TOBY Prochlorperazine (Prochlorperazine 10 Mg/2 Ml Vial) 10 mg IV NOW ONE Stop: 07/11/25 04:07 Last Admin: 07/11/25 04:20 Dose: 10 mg Documented By: [facility] Vital Signs Vital signs: Vital Signs - 8 hr 07/11/25 04:04 07/11/25 04:06 07/11/25 04:08 Pulse Rate 106 H 105 H 105 H Respiratory Rate 15 16 14 Blood Pressure Pulse Oximetry 98 98 98 Oxygen Delivery Method Nasal Cannula Oxygen Flow Rate 2 07/11/25 04:10 07/11/25 04:12 07/11/25 04:14 Pulse Rate 106 H 107 H 114 H Respiratory Rate 15 19 14 Blood Pressure Pulse Oximetry 98 98 97 Oxygen Delivery Method Nasal Cannula Oxygen Flow Rate 2 07/11/25 04:15 07/11/25 04:15 07/11/25 04:16 Pulse Rate 107 H 105 H Respiratory Rate 12 13 Blood Pressure 122/58 L Pulse Oximetry 97 97 Oxygen Delivery Method Oxygen Flow Rate 07/11/25 04:18 07/11/25 04:20 07/11/25 04:20 Pulse Rate 104 H 103 H 105 H Respiratory Rate 12 12 Blood Pressure 122/58 L Pulse Oximetry 96 96 Oxygen Delivery Method Oxygen Flow Rate 07/11/25 04:22 07/11/25 04:24 07/11/25 04:26 Pulse Rate 102 H 102 H 100 H Respiratory Rate 12 12 12 Blood Pressure Pulse Oximetry 97 97 97 Oxygen Delivery Method Oxygen Flow Rate 07/11/25 04:28 07/11/25 04:30 07/11/25 04:30 Pulse Rate 101 H 102 H Respiratory Rate 12 12 Blood Pressure 116/55 L Pulse Oximetry 97 96 Oxygen Delivery Method Nasal Cannula Oxygen Flow Rate 2 07/11/25 04:32 07/11/25 04:34 07/11/25 04:36 Pulse Rate 105 H 102 H 101 H Respiratory Rate 13 14 13 Blood Pressure Pulse Oximetry 97 96 97 Oxygen Delivery Method Oxygen Flow Rate 07/11/25 04:38 07/11/25 04:40 07/11/25 04:42 Pulse Rate 101 H 104 H 103 H Respiratory Rate 14 12 14 Blood Pressure Pulse Oximetry 96 96 96 Oxygen Delivery Method Oxygen Flow Rate 07/11/25 04:44 07/11/25 04:45 07/11/25 04:45 Pulse Rate 101 H 100 H Respiratory Rate 12 12 Blood Pressure 112/55 L Pulse Oximetry 96 96 Oxygen Delivery Method Oxygen Flow Rate 07/11/25 04:46 07/11/25 04:48 07/11/25 04:50 Pulse Rate 101 H 110 H 114 H Respiratory Rate 12 16 19 Blood Pressure Pulse Oximetry 96 97 95 Oxygen Delivery Method Oxygen Flow Rate 07/11/25 04:52 07/11/25 04:54 07/11/25 04:56 Pulse Rate 106 H 119 H 127 H Respiratory Rate 12 16 18 Blood Pressure Pulse Oximetry 96 95 95 Oxygen Delivery Method Oxygen Flow Rate 07/11/25 04:58 07/11/25 05:00 07/11/25 05:01 Pulse Rate 124 H 121 H 119 H Respiratory Rate 16 20 15 Blood Pressure Pulse Oximetry 94 94 Oxygen Delivery Method Nasal Cannula Oxygen Flow Rate 2 07/11/25 05:01 07/11/25 05:02 07/11/25 05:04 Pulse Rate 115 H 114 H Respiratory Rate 16 15 Blood Pressure 152/72 H Pulse Oximetry 95 95 Oxygen Delivery Method Oxygen Flow Rate 07/11/25 05:06 07/11/25 05:08 07/11/25 05:10 Pulse Rate 113 H 121 H 117 H Respiratory Rate 18 20 21 Blood Pressure Pulse Oximetry 95 95 96 Oxygen Delivery Method Oxygen Flow Rate 07/11/25 05:12 07/11/25 05:14 07/11/25 05:15 Pulse Rate 124 H 110 H Respiratory Rate 23 22 Blood Pressure 145/65 H Pulse Oximetry 95 95 Oxygen Delivery Method Oxygen Flow Rate 07/11/25 05:15 07/11/25 05:16 07/11/25 05:18 Pulse Rate 114 H 110 H 109 H Respiratory Rate 12 12 12 Blood Pressure Pulse Oximetry 97 97 97 Oxygen Delivery Method Oxygen Flow Rate 07/11/25 05:20 07/11/25 05:22 07/11/25 05:24 Pulse Rate 104 H 112 H 115 H Respiratory Rate 15 16 18 Blood Pressure Pulse Oximetry 97 97 97 Oxygen Delivery Method Oxygen Flow Rate 07/11/25 05:26 07/11/25 05:28 07/11/25 05:30 Pulse Rate 115 H 125 H 111 H Respiratory Rate 23 15 13 Blood Pressure Pulse Oximetry 96 92 96 Oxygen Delivery Method Oxygen Flow Rate 07/11/25 05:30 07/11/25 05:32 07/11/25 05:34 Pulse Rate 106 H 104 H Respiratory Rate 14 12 Blood Pressure 136/64 Pulse Oximetry 97 97 Oxygen Delivery Method Oxygen Flow Rate 07/11/25 05:36 07/11/25 05:38 07/11/25 05:40 Pulse Rate 104 H 117 H 132 H Respiratory Rate 13 16 18 Blood Pressure Pulse Oximetry 97 97 96 Oxygen Delivery Method Oxygen Flow Rate 07/11/25 05:42 Pulse Rate 118 H Respiratory Rate 14 Blood Pressure Pulse Oximetry 97 Oxygen Delivery Method Oxygen Flow Rate <Bree Verdin, - Last Filed: 07/11/25 18:32> Orders Ordered: ED Orders 07/11/25 16:04 [facility] Creatine Kinase MB Routine 07/11/25 16:04 Consult to Occupational Therapy Evaluate & Treat Consult to Physical Therapy Evaluate & Treat 07/11/25 18:05 Basic Metabolic Panel Routine Complete Blood Count AUTO DIFF Routine Magnesium Routine Acetaminophen (Acetaminophen 325 Mg Tablet) 650 mg PO Q6H PRN PRN Reason: Fever/Mild Pain (1-3) Baclofen (Baclofen 10 Mg Tablet) 5 mg PO TID PRN PRN Reason: Muscle Spasm Lactated Ringer's (Lactated Ringers) 1,000 mls @ 125 mls/hr IV CONT TROY Naloxone HCl (Naloxone 0.4 Mg/Ml Vial) 0.2 mg IV Q2MIN PRN PRN Reason: Opiate Reversal Ondansetron HCl (Ondansetron 4 Mg/2 Ml Inj) 4 mg IV Q8HR PRN PRN Reason: Nausea And Vomiting Discontinued Medications Albuterol (Albuterol 2.5 Mg/3 Ml Neb (Adult)) 2.5 mg INH NOW ONE Stop: 07/11/25 02:24 Last Admin: 07/11/25 02:26 Dose: 2.5 mg Documented By: BLF Albuterol (Albuterol 2.5 Mg/3 Ml Neb (Adult)) 2.5 mg INH NOW ONE Stop: 07/11/25 11:16 Last Admin: 07/11/25 11:16 Dose: 2.5 mg Documented By: JZF Albuterol/Ipratropium (Albuterol/Ipratropium 3 Ml Ampul) 3 ml INH NOW ONE Stop: 07/11/25 02:14 Last Admin: 07/11/25 02:27 Dose: Not Given Documented By: BLF Diphtheria/Tetanus/Acell Pertussis (Tet,Diph,Pertuss(Acell),Vac/Pf 0.5 Ml Syringe) 0.5 ml IM .ONCE ONE Stop: 07/11/25 00:15 Last Admin: 07/11/25 00:19 Dose: 0.5 ml Documented By: RLC Hydromorphone HCl (Hydromorphone Hcl 0.5 Mg/0.5 Ml Syringe) 0.5 mg IV NOW ONE Stop: 07/11/25 00:19 Last Admin: 07/11/25 00:22 Dose: 0.5 mg Documented By: RLC Hydromorphone HCl (Hydromorphone Hcl 0.5 Mg/0.5 Ml Syringe) 0.5 mg IV NOW ONE Stop: 07/11/25 04:07 Last Admin: 07/11/25 04:19 Dose: 0.5 mg Documented By: RLKatherine Sodium Chloride (Normal Saline 0.9%) 500 mls @ 1,000 mls/hr IV BOLUS ONE Stop: 07/11/25 03:44 Last Infusion: 07/11/25 04:01 Dose: Infused Documented By: RLKatherine Admin: 07/11/25 03:20 Dose: 1,000 mls/hr Documented By: TOBY Lactated Ringer's (Lactated Ringers) 1,000 mls @ 125 mls/hr IV CONT TROY Last Admin: 07/11/25 15:29 Dose: 125 mls/hr Documented By: Infusion: 07/11/25 15:05 Dose: Infused Documented By: Admin: 07/11/25 07:05 Dose: 125 mls/hr Documented By: RLKatherine Magnesium Sulfate (Magnesium Sulfate) 2 gm in 50 mls @ 25 mls/hr IV NOW ONE Stop: 07/11/25 14:08 Last Infusion: 07/11/25 16:07 Dose: Infused Documented By: CIPRIANO Co-signed By: WAGNER Admin: 07/11/25 12:34 Dose: 25 mls/hr Documented By: SBF Co-signed By: Lorazepam (Lorazepam 2 Mg/Ml Inj) 1 mg IV NOW ONE Stop: 07/11/25 11:48 Last Admin: 07/11/25 11:50 Dose: 1 mg Documented By: SBF Magnesium Chloride (Magnesium Chloride 64 Mg Tablet) 128 mg PO 0930 ONE Stop: 07/11/25 09:31 Last Admin: 07/11/25 11:05 Dose: Not Given Documented By: SBF Metoclopramide HCl (Metoclopramide 10 Mg/2 Ml Inj) 10 mg IV NOW ONE Stop: 07/11/25 01:05 Last Admin: 07/11/25 01:06 Dose: 10 mg Documented By: ZAIRE Metoprolol Tartrate (Metoprolol Tartrate 5 Mg/5 Ml Inj) 5 mg IV NOW ONE Stop: 07/11/25 12:24 Last Admin: 07/11/25 16:06 Dose: Not Given Documented By: CIPRIANO Ondansetron HCl (Ondansetron 4 Mg/2 Ml Inj) 4 mg IV NOW ONE Stop: 07/11/25 00:15 Last Admin: 07/11/25 00:20 Dose: 4 mg Documented By: TOBY Prochlorperazine (Prochlorperazine 10 Mg/2 Ml Vial) 10 mg IV NOW ONE Stop: 07/11/25 04:07 Last Admin: 07/11/25 04:20 Dose: 10 mg Documented By: TOBY Vital Signs Vital signs: Vital Signs - 8 hr 07/11/25 04:04 07/11/25 04:06 07/11/25 04:08 Pulse Rate 106 H 105 H 105 H Respiratory Rate 15 16 14 Blood Pressure Pulse Oximetry 98 98 98 Oxygen Delivery Method Nasal Cannula Oxygen Flow Rate 2 07/11/25 04:10 07/11/25 04:12 07/11/25 04:14 Pulse Rate 106 H 107 H 114 H Respiratory Rate 15 19 14 Blood Pressure Pulse Oximetry 98 98 97 Oxygen Delivery Method Nasal Cannula Oxygen Flow Rate 2 07/11/25 04:15 07/11/25 04:15 07/11/25 04:16 Pulse Rate 107 H 105 H Respiratory Rate 12 13 Blood Pressure 122/58 L Pulse Oximetry 97 97 Oxygen Delivery Method Oxygen Flow Rate 07/11/25 04:18 07/11/25 04:20 07/11/25 04:20 Pulse Rate 104 H 103 H 105 H Respiratory Rate 12 12 Blood Pressure 122/58 L Pulse Oximetry 96 96 Oxygen Delivery Method Oxygen Flow Rate 07/11/25 04:22 07/11/25 04:24 07/11/25 04:26 Pulse Rate 102 H 102 H 100 H Respiratory Rate 12 12 12 Blood Pressure Pulse Oximetry 97 97 97 Oxygen Delivery Method Oxygen Flow Rate 07/11/25 04:28 07/11/25 04:30 07/11/25 04:30 Pulse Rate 101 H 102 H Respiratory Rate 12 12 Blood Pressure 116/55 L Pulse Oximetry 97 96 Oxygen Delivery Method Nasal Cannula Oxygen Flow Rate 2 07/11/25 04:32 07/11/25 04:34 07/11/25 04:36 Pulse Rate 105 H 102 H 101 H Respiratory Rate 13 14 13 Blood Pressure Pulse Oximetry 97 96 97 Oxygen Delivery Method Oxygen Flow Rate 07/11/25 04:38 07/11/25 04:40 07/11/25 04:42 Pulse Rate 101 H 104 H 103 H Respiratory Rate 14 12 14 Blood Pressure Pulse Oximetry 96 96 96 Oxygen Delivery Method Oxygen Flow Rate 07/11/25 04:44 07/11/25 04:45 07/11/25 04:45 Pulse Rate 101 H 100 H Respiratory Rate 12 12 Blood Pressure 112/55 L Pulse Oximetry 96 96 Oxygen Delivery Method Oxygen Flow Rate 07/11/25 04:46 07/11/25 04:48 07/11/25 04:50 Pulse Rate 101 H 110 H 114 H Respiratory Rate 12 16 19 Blood Pressure Pulse Oximetry 96 97 95 Oxygen Delivery Method Oxygen Flow Rate 07/11/25 04:52 07/11/25 04:54 07/11/25 04:56 Pulse Rate 106 H 119 H 127 H Respiratory Rate 12 16 18 Blood Pressure Pulse Oximetry 96 95 95 Oxygen Delivery Method Oxygen Flow Rate 07/11/25 04:58 07/11/25 05:00 07/11/25 05:01 Pulse Rate 124 H 121 H 119 H Respiratory Rate 16 20 15 Blood Pressure Pulse Oximetry 94 94 Oxygen Delivery Method Nasal Cannula Oxygen Flow Rate 2 07/11/25 05:01 07/11/25 05:02 07/11/25 05:04 Pulse Rate 115 H 114 H Respiratory Rate 16 15 Blood Pressure 152/72 H Pulse Oximetry 95 95 Oxygen Delivery Method Oxygen Flow Rate 07/11/25 05:06 07/11/25 05:08 07/11/25 05:10 Pulse Rate 113 H 121 H 117 H Respiratory Rate 18 20 21 Blood Pressure Pulse Oximetry 95 95 96 Oxygen Delivery Method Oxygen Flow Rate 07/11/25 05:12 07/11/25 05:14 07/11/25 05:15 Pulse Rate 124 H 110 H Respiratory Rate 23 22 Blood Pressure 145/65 H Pulse Oximetry 95 95 Oxygen Delivery Method Oxygen Flow Rate 07/11/25 05:15 07/11/25 05:16 07/11/25 05:18 Pulse Rate 114 H 110 H 109 H Respiratory Rate 12 12 12 Blood Pressure Pulse Oximetry 97 97 97 Oxygen Delivery Method Oxygen Flow Rate 07/11/25 05:20 07/11/25 05:22 07/11/25 05:24 Pulse Rate 104 H 112 H 115 H Respiratory Rate 15 16 18 Blood Pressure Pulse Oximetry 97 97 97 Oxygen Delivery Method Oxygen Flow Rate 07/11/25 05:26 07/11/25 05:28 07/11/25 05:30 Pulse Rate 115 H 125 H 111 H Respiratory Rate 23 15 13 Blood Pressure Pulse Oximetry 96 92 96 Oxygen Delivery Method Oxygen Flow Rate 07/11/25 05:30 07/11/25 05:32 07/11/25 05:34 Pulse Rate 106 H 104 H Respiratory Rate 14 12 Blood Pressure 136/64 Pulse Oximetry 97 97 Oxygen Delivery Method Oxygen Flow Rate 07/11/25 05:36 07/11/25 05:38 07/11/25 05:40 Pulse Rate 104 H 117 H 132 H Respiratory Rate 13 16 18 Blood Pressure Pulse Oximetry 97 97 96 Oxygen Delivery Method Oxygen Flow Rate 07/11/25 05:42 Pulse Rate 118 H Respiratory Rate 14 Blood Pressure Pulse Oximetry 97 Oxygen Delivery Method Oxygen Flow Rate MDM - Trauma <Jason Rodríguez, DO - Last Filed: 07/11/25 17:46> Lab Data 07/10/25 23:55 07/10/25 23:55 Labs: Lab Results 07/10/25 Range/Units 23:55 WBC 9.8 (4.5-11.0) X10^3/uL RBC 4.40 (4.0-5.2) X10^6/uL Hgb 14.0 (12.0-16.0) g/dL Hct 41.4 (36-46) % MCV 94.2 (80-100) fL MCH 31.8 (26-34) PG MCHC 33.8 (30-36) % RDW 13.3 (11.6-14.8) % Plt Count 267 (150-400) X10^3/uL Neut % (Auto) 61.5 (50-75) % Lymph % (Auto) 31.5 (25-40) % Sabine % (Auto) 5.6 (3-14) % Eos % (Auto) 0.9 L (2-4) % Baso % (Auto) 0.5 (0-2) % Neut # (Auto) 6000 (2208-8806) /uL Lymph # (Auto) 3100 (8525-0486) /uL Sabine # (Auto) 600 (0-900) /uL Eos # (Auto) 100 (0-450) /uL Baso # (Auto) 0 (0-100) /uL Sodium 131 L (137-145) mmol/L Potassium 4.6 (3.4-5.1) mmol/L Chloride 92 L (98-107) mmol/L Carbon Dioxide 29 (22-32) mmol/L BUN 15 (7-17) mg/dL Creatinine 0.54 (0.52-1.04) mg/dL Estimated GFR > 60 (>60) mL/min BUN/Creatinine Ratio 27.8 H (6-22) Glucose 111 H (70-99) mg/dL Calcium 9.5 (8.4-10.2) mg/dL Total Bilirubin 0.4 (0.2-1.3) mg/dL AST 41 H (14-36) IU/L ALT 43 H (<35) IU/L Alkaline Phosphatase 60 (38-126) U/L Troponin I < 0.012 (0.01-0.034) ng/mL Total Protein 6.9 (6.3-8.2) g/dL Albumin 4.3 (3.5-5.0) g/dL Globulin 2.6 (1.7-4.1) g/dL Albumin/Globulin Ratio 1.7 (1.0-2.8) Imaging Data CT scan - head: Radiologist's Impression: No acute intracranial abnormality. Left occipital hematoma without calvarial fracture CT - cervical spine: Radiologist's Impression: No acute abnormality. Extremity x-ray #1: Radiologist's Impression: Ct Lumbar spine - moderate degenerative changes. No fracture or other evidence of acute injury MDM Narrative Medical decision making narrative: All lab work, vital signs, nurse triage note, medication list, previous ER visits, and all imaging studies reviewed. Anesthesia was called to help with airway given patient was having difficulty lying down in the supine position for radiology imaging. No areas on head exam eligible for laceration repair with suturing or stapling. WBC 9.8 hemoglobin 14 platelet 267 sodium 131 potassium 4.6 chloride 92 CO2 29 BUN 15 creatinine 0.54 glucose 111 ALT 43 AST 41 troponin less than 0.012. Pt given NS 500ml bolus x 1, zofran, reglan, compazine and dilaudid. Chest x-ray showed no acute cardiopulmonary process. Moderate degenerative changes no fracture or other acute evidence of acute injury for CT lumbar spine. CT head shows no acute intracranial abnormality. Left occipital hematoma without calvarial fracture. Cervical spine shows no acute abnormality. Differential diagnosis includes hematoma, hemorrhage, pneumothorax, fracture, contusion. Two sets troponins normal BNP 251 magnesium 1.5 <Bree Verdin, DO - Last Filed: 07/11/25 18:32> Lab Data Labs: Lab Results 07/10/25 Range/Units 23:55 WBC 9.8 (4.5-11.0) X10^3/uL RBC 4.40 (4.0-5.2) X10^6/uL Hgb 14.0 (12.0-16.0) g/dL Hct 41.4 (36-46) % MCV 94.2 (80-100) fL MCH 31.8 (26-34) PG MCHC 33.8 (30-36) % RDW 13.3 (11.6-14.8) % Plt Count 267 (150-400) X10^3/uL Neut % (Auto) 61.5 (50-75) % Lymph % (Auto) 31.5 (25-40) % Sabine % (Auto) 5.6 (3-14) % Eos % (Auto) 0.9 L (2-4) % Baso % (Auto) 0.5 (0-2) % Neut # (Auto) 6000 (7017-2166) /uL Lymph # (Auto) 3100 (3235-3045) /uL Sabine # (Auto) 600 (0-900) /uL Eos # (Auto) 100 (0-450) /uL Baso # (Auto) 0 (0-100) /uL Sodium 131 L (137-145) mmol/L Potassium 4.6 (3.4-5.1) mmol/L Chloride 92 L (98-107) mmol/L Carbon Dioxide 29 (22-32) mmol/L BUN 15 (7-17) mg/dL Creatinine 0.54 (0.52-1.04) mg/dL Estimated GFR > 60 (>60) mL/min BUN/Creatinine Ratio 27.8 H (6-22) Glucose 111 H (70-99) mg/dL Calcium 9.5 (8.4-10.2) mg/dL Total Bilirubin 0.4 (0.2-1.3) mg/dL AST 41 H (14-36) IU/L ALT 43 H (<35) IU/L Alkaline Phosphatase 60 (38-126) U/L Troponin I < 0.012 (0.01-0.034) ng/mL Total Protein 6.9 (6.3-8.2) g/dL Albumin 4.3 (3.5-5.0) g/dL Globulin 2.6 (1.7-4.1) g/dL Albumin/Globulin Ratio 1.7 (1.0-2.8) MDM Narrative Medical decision making narrative: All lab work, vital signs, nurse triage note, medication list, previous ER visits, and all imaging studies reviewed. Anesthesia was called to help with airway given patient was having difficulty lying down in the supine position for radiology imaging. No areas on head exam eligible for laceration repair with suturing or stapling. WBC 9.8 hemoglobin 14 platelet 267 sodium 131 potassium 4.6 chloride 92 CO2 29 BUN 15 creatinine 0.54 glucose 111 ALT 43 AST 41 troponin less than 0.012. Pt given NS 500ml bolus x 1, zofran, reglan, compazine and dilaudid. Chest x-ray showed no acute cardiopulmonary process. Moderate degenerative changes no fracture or other acute evidence of acute injury for CT lumbar spine. CT head shows no acute intracranial abnormality. Left occipital hematoma without calvarial fracture. Cervical spine shows no acute abnormality. Differential diagnosis includes hematoma, hemorrhage, pneumothorax, fracture, contusion. Two sets troponins normal BNP 251 magnesium 1.5 Patient admitted to hospitalist service. Call to Dr. Aliya luong hospitalist has been contacted by Radiology there read from overnight suspected trace left subdural hemorrhage measuring 2-3 mm in thickness. Left parietal scalp hematoma without underlying calvarial fracture. 0815: Patient is seen and evaluated by myself, she is upright and a chair, conversant does have some dry blood in the posterior scalp with bandage. They were initially refusing repeat head CT after discussion patient usually requires assistance from anesthesia for CTs secondary to her ALS they state this is normal for her although she has not had CTs and some time. Neurosurgery: Spoke with Dr. Avalos neurosurgery at [facility] patient does not require any other interventions. Appropriate for observation does not require any other interventions. updated Dr. Pisano . Discharge Plan Departure Patient Disposition: Admitted as Observation Clinical Impression: Hematoma of occipital region of scalp, Weak Fall Qualifiers: Encounter type: initial encounter Qualified Code(s): W19.XXXA - Unspecified fall, initial encounter Admit Date/Time: 07/11/25 05:42 Admit Provider: Raad Zhou
[2025-07-11] VITALS (587 sets, daily range): BP systolic 89–210; BP diastolic 52–107; PULSE 70–145; RESP 9–46; TEMP 36.2–36.6; O2SAT 82–100; BMI 21.4
--- NOTE | 2025-07-11 00:13 | DI.CT.S_ITS ---
PROCEDURE: CT HEAD/BRAIN WO CON INDICATIONS: fall trauma TECHNIQUE: Noncontrast 4.5 mm thick angled axial sections acquired from the foramen magnum to the vertex, with coronal and sagittal reformats. For radiation dose reduction, the following was used: automated exposure control, adjustment of mA and/or kV according to patient size. COMPARISON: None. FINDINGS: Image quality: Diagnostic. CSF spaces: Basal cisterns are patent. There is asymmetric enhancement along the left tentorium cerebelli compared to the right (5/30) measuring 2-3 mm in thickness concerning for trace left subdural hemorrhage. The ventricles are symmetric in size and shape. Brain: No intracranial bleeds or mass effect. There is cerebral volume loss, with resultant ventricular and sulcal prominence. There are periventricular and deep white matter chronic small vessel ischemic changes. There is intracranial internal carotid artery atherosclerosis. Skull and face: Calvarium and visualized facial bones appear intact, without suspicious lesions. Left parietal scalp hematoma. Sinuses: Visualized sinuses and mastoids are clear. IMPRESSION: Suspected trace left subdural hemorrhage measuring 2-3 mm in thickness. Left parietal scalp hematoma without underlying calvarial fracture. Findings were discussed with Dr. Scott by Dr. Pool at 7:30 a.m. PST on 07/11/2025. Approved by: Gertrudis Pool M.D.,Ph.D. on 07/11/2025 at 7:31
--- NOTE | 2025-07-11 00:13 | DI.CT.S_ITS ---
PROCEDURE: CT CERVICAL SPINE WO CON INDICATIONS: fall trauma TECHNIQUE: Noncontrast 3 mm thick sections acquired from the skull base to the T4 level. Sagittal and coronal reformats were then constructed. For radiation dose reduction, the following was used: automated exposure control, adjustment of mA and/or kV according to patient size. COMPARISON: None. FINDINGS: Image quality: Diagnostic Bones: No fractures or dislocations. Visualized superior ribs are intact. Exaggerated lordosis of the cervical spine. T3 sclerotic focus, probable benign bone island. Mild multilevel degenerative changes. Soft tissues: Prevertebral soft tissues are normal in thickness. No paravertebral hematomas. No apical pneumothoraces. IMPRESSION: No acute displaced fracture or traumatic subluxation. Findings are concordant with preliminary interpretation provided by [facility]. Approved by: Gertrudis Pool M.D.,Ph.D. on 07/11/2025 at 7:33
--- NOTE | 2025-07-11 00:14 | DI.CT.S_ITS ---
PROCEDURE: CT LUMBAR SPINE WO CON INDICATIONS: back pain TECHNIQUE: Noncontrast 3 mm thick sections acquired from the T12 level to the sacrum. Sagittal and coronal reformats were constructed. For radiation dose reduction, the following was used: automated exposure control. COMPARISON: Lumbar spine radiograph 06/26/2023. FINDINGS: Image quality: Diagnostic. Bones: There is normal bony alignment. No acute vertebral body compression fractures. No suspicious lytic or blastic bony lesions. No pars defects. Mild dextroconvex curvature. Multilevel degenerative changes and facet arthropathy. Soft tissues: No retroperitoneal masses or hematomas. Visualized aorta is normal in caliber. Status post cholecystectomy. Moderate hiatal hernia. Aorto bi iliac atherosclerotic calcifications. Sigmoid diverticulosis without acute inflammation. IMPRESSION: No acute fracture or traumatic subluxation. Moderate multilevel degenerative changes. Additional findings as above. Findings are concordant with preliminary interpretation provided by [facility]. Approved by: Gertrudis Pool M.D.,Ph.D. on 07/11/2025 at 7:37
--- NOTE | 2025-07-11 00:14 | DI.RAD.S_ITS ---
PROCEDURE: XR CHEST 1V INDICATIONS: trauma TECHNIQUE: One view of the chest was acquired. COMPARISON: None. FINDINGS: Surgical changes and devices: None. Lungs and pleura: Lungs are clear. No pleural effusions or pneumothorax. Mediastinum: Mediastinal contours appear normal. Heart size is normal. Bones and chest wall: No suspicious bony lesions. Overlying soft tissues appear unremarkable. IMPRESSION: No acute cardiopulmonary abnormality is seen. Note: This final report is concordant with the preliminary after-hours interpretation provided by [facility] Approved by: Duy Navas M.D. on 07/11/2025 at 8:49
[2025-07-11] MEDS: TET,DIPH,PERTUSS(ACELL),VAC/PF 0.5 ML SYRINGE IM (00:19)
[2025-07-11] MEDS: ONDANSETRON 4 MG/2 ML INJ IV (00:20)
[2025-07-11 00:56] LABS: Add Manual Diff / Slide Review NO; Hematocrit 41.4 % (36-46); Hemoglobin 14.0 g/dL (12.0-16.0); Lymphocytes Absolute Auto 3100 /uL (1100-4500); Mean Corpuscular HGB Conc 33.8 % (30-36); Mean Corpuscular Hemoglobin 31.8 PG (26-34); Mean Corpuscular Volume 94.2 fL (80-100); Platelet Count 267 X10^3/uL (150-400)
[2025-07-11] MEDS: METOCLOPRAMIDE 10 MG/2 ML INJ IV (01:06)
[2025-07-11 01:52] LABS: Alanine Aminotransferase 43 IU/L (<35); Albumin 4.3 g/dL (3.5-5.0); Albumin Globulin Ratio 1.7 (1.0-2.8); Alkaline Phosphatase 60 U/L (38-126); Blood Urea Nitrogen 15 mg/dL (7-17); Calcium 9.5 mg/dL (8.4-10.2); Carbon Dioxide 29 mmol/L (22-32); Chloride 92 mmol/L (98-107); Estimated Glomerular Filt Rate > 60 mL/min (>60); Globulin 2.6 g/dL (1.7-4.1); Glucose 111 mg/dL (70-99); HEMOLYSIS 16 (0-50); Potassium 4.6 mmol/L (3.4-5.1); Sodium 131 mmol/L (137-145); Total Protein 6.9 g/dL (6.3-8.2)
[2025-07-11 02:04] LABS: Troponin I < 0.012 ng/mL (0.01-0.034)
--- NOTE | 2025-07-11 02:10 | PC.NURSE ---
Assumed care of pt after returning from break from [employer]. Per her report, pt was unable to tolerate CT scan d/t inability to lay flat which resulted in c/o SOB. Attempts were made to reposition the patient and place pillow wedges in left side lying position unsuccessfully. MD coelho.
[2025-07-11] MEDS: ALBUTEROL 2.5 MG/3 ML NEB (ADULT) INH ×2 (02:26→11:16)
[2025-07-11] MEDS: SODIUM CHLORIDE 0.9% 500 ML 1000 ML IV (03:20)
[2025-07-11] MEDS: PROCHLORPERAZINE 10 MG/2 ML VIAL IV (04:20)
--- NOTE | 2025-07-11 05:45 | PM.HP.1 ---
History of Present Illness History of Present Illness Chief complaint: GLF Narrative: 74F with PMH of HTN, hyperlipidemia, hypothyroidism, GERD, asthma not on oxygen who walks with a walker due to osteoarthritis and ALS presented to ED after a mechanical fall resulting in hitting of head without syncope, chest pain, dyspnea, incontinence, or spinal pain. She developed a hematoma on the occiput. Imaging reports are not released yet but per ED physician, the preliminary reads showed no acute process on CT head, CT C-spine, CXR, and CT L-spine. Labs were only notable for mild hyponatremia of 131 and minimally elevated transaminases. She was found to be mildly hypoxic requiring 2L oxygen. She also required sedation because of chronic back pain from trying to lie flat supine for CT. [facility] Medical History Fasciculations Tremor Ataxic gait Atrophy of muscle of both hands Weakness Paresthesia Meds Home Medications and Allergies Home Medications ?Medication ?Instructions ?Recorded ?Confirmed ?Type albuterol sulfate 90 mcg/actuation 1 puff inhalation ONCE 04/23/25 04/23/25 History aerosol inhaler (Ventolin HFA) levothyroxine 13 mcg capsule 13 mcg PO DAILY 04/23/25 04/23/25 History mometasone-formoterol HFA 200 2 puff inhalation BID 04/23/25 04/23/25 History mcg-5 mcg/actuation aerosol inhaler (Dulera) omeprazole 20 mg tablet,delayed 20 mg PO DAILY 04/23/25 04/23/25 History release propranolol 10 mg tablet 20 mg PO DAILY Essential tremor 04/23/25 04/23/25 History rosuvastatin 10 mg tablet 10 mg PO DAILY 04/23/25 04/23/25 History Allergies Allergy/AdvReac Type Severity Reaction Status Date / Time codeine Allergy Severe Anaphylaxis Verified 07/11/25 00:11 morphine AdvReac Mild Rash Verified 07/11/25 00:11 Sulfa (Sulfonamide AdvReac Mild Rash Verified 07/11/25 00:11 Antibiotics) Review of Systems Review of Systems Narrative: As per HPI. Rest of 10-system review negative. Exam Vital Signs (past 8 hours): - 07/11/25 00:02 07/11/25 00:04 07/11/25 00:30 Temperature 97.8 F Pulse Rate 91 H 84 84 Respiratory Rate 24 Blood Pressure 179/86 H Pulse Oximetry 95 95 99 Oxygen Delivery Method Room Air Oxygen Flow Rate Fraction of Inspired Oxygen 07/11/25 00:31 07/11/25 00:31 07/11/25 00:36 Temperature Pulse Rate 77 71 Respiratory Rate 17 Blood Pressure 150/74 H Pulse Oximetry 99 98 Oxygen Delivery Method Oxygen Flow Rate Fraction of Inspired Oxygen 07/11/25 00:38 07/11/25 00:40 07/11/25 00:42 Temperature Pulse Rate 73 72 72 Respiratory Rate 20 20 20 Blood Pressure Pulse Oximetry 98 98 98 Oxygen Delivery Method Oxygen Flow Rate Fraction of Inspired Oxygen 07/11/25 00:44 07/11/25 00:46 07/11/25 00:48 Temperature Pulse Rate 71 75 75 Respiratory Rate 17 24 24 Blood Pressure Pulse Oximetry 98 98 98 Oxygen Delivery Method Oxygen Flow Rate Fraction of Inspired Oxygen 07/11/25 00:50 07/11/25 00:52 07/11/25 00:54 Temperature Pulse Rate 72 70 78 Respiratory Rate 32 H 15 24 Blood Pressure Pulse Oximetry 98 98 97 Oxygen Delivery Method Oxygen Flow Rate Fraction of Inspired Oxygen 07/11/25 00:56 07/11/25 00:58 07/11/25 01:00 Temperature Pulse Rate 74 73 Respiratory Rate 23 20 Blood Pressure 165/81 H Pulse Oximetry 97 97 Oxygen Delivery Method Oxygen Flow Rate Fraction of Inspired Oxygen 07/11/25 01:00 07/11/25 01:02 07/11/25 01:04 Temperature Pulse Rate 72 71 70 Respiratory Rate 25 H 20 17 Blood Pressure Pulse Oximetry 97 99 99 Oxygen Delivery Method Nasal Cannula Oxygen Flow Rate 2 Fraction of Inspired Oxygen 07/11/25 01:06 07/11/25 01:08 07/11/25 01:10 Temperature Pulse Rate 70 70 72 Respiratory Rate 19 19 22 Blood Pressure Pulse Oximetry 98 98 96 Oxygen Delivery Method Oxygen Flow Rate Fraction of Inspired Oxygen 07/11/25 01:21 07/11/25 01:22 07/11/25 01:23 Temperature Pulse Rate 79 79 78 Respiratory Rate 30 H 22 Blood Pressure Pulse Oximetry 92 98 98 Oxygen Delivery Method Oxygen Flow Rate Fraction of Inspired Oxygen 07/11/25 01:23 07/11/25 01:24 07/11/25 01:26 Temperature Pulse Rate 75 74 Respiratory Rate 20 18 Blood Pressure 158/71 H Pulse Oximetry 98 98 Oxygen Delivery Method Oxygen Flow Rate Fraction of Inspired Oxygen 07/11/25 01:28 07/11/25 01:30 07/11/25 01:30 Temperature Pulse Rate 76 75 Respiratory Rate 17 17 Blood Pressure 137/73 Pulse Oximetry 99 99 Oxygen Delivery Method Nasal Cannula Oxygen Flow Rate 2 Fraction of Inspired Oxygen 07/11/25 01:32 07/11/25 01:34 07/11/25 01:36 Temperature Pulse Rate 81 74 74 Respiratory Rate 19 17 20 Blood Pressure Pulse Oximetry 98 98 98 Oxygen Delivery Method Oxygen Flow Rate Fraction of Inspired Oxygen 07/11/25 01:38 07/11/25 01:40 07/11/25 01:42 Temperature Pulse Rate 75 76 83 Respiratory Rate 22 16 23 Blood Pressure Pulse Oximetry 98 98 98 Oxygen Delivery Method Oxygen Flow Rate Fraction of Inspired Oxygen 07/11/25 01:44 07/11/25 01:46 07/11/25 01:48 Temperature Pulse Rate 80 85 84 Respiratory Rate 22 23 24 Blood Pressure Pulse Oximetry 98 98 98 Oxygen Delivery Method Oxygen Flow Rate Fraction of Inspired Oxygen 07/11/25 01:50 07/11/25 01:52 07/11/25 01:54 Temperature Pulse Rate 83 78 77 Respiratory Rate 17 18 18 Blood Pressure Pulse Oximetry 98 98 98 Oxygen Delivery Method Oxygen Flow Rate Fraction of Inspired Oxygen 07/11/25 01:56 07/11/25 01:58 07/11/25 02:00 Temperature Pulse Rate 80 89 85 Respiratory Rate 21 21 24 Blood Pressure Pulse Oximetry 99 98 98 Oxygen Delivery Method Oxygen Flow Rate Fraction of Inspired Oxygen 07/11/25 02:01 07/11/25 02:01 07/11/25 02:02 Temperature Pulse Rate 82 88 Respiratory Rate 19 24 Blood Pressure 170/72 H Pulse Oximetry 98 98 Oxygen Delivery Method Oxygen Flow Rate Fraction of Inspired Oxygen 07/11/25 02:04 07/11/25 02:06 07/11/25 02:08 Temperature Pulse Rate 85 91 H 93 H Respiratory Rate 18 20 23 Blood Pressure Pulse Oximetry 97 98 98 Oxygen Delivery Method Oxygen Flow Rate Fraction of Inspired Oxygen 07/11/25 02:10 07/11/25 02:12 07/11/25 02:14 Temperature Pulse Rate 94 H 85 85 Respiratory Rate 24 19 21 Blood Pressure Pulse Oximetry 98 98 99 Oxygen Delivery Method Oxygen Flow Rate Fraction of Inspired Oxygen 07/11/25 02:16 07/11/25 02:18 07/11/25 02:20 Temperature Pulse Rate 87 86 87 Respiratory Rate 28 H 17 20 Blood Pressure Pulse Oximetry 98 98 98 Oxygen Delivery Method Oxygen Flow Rate Fraction of Inspired Oxygen 07/11/25 02:22 07/11/25 02:24 07/11/25 02:26 Temperature Pulse Rate 94 H 88 89 Respiratory Rate 17 19 17 Blood Pressure Pulse Oximetry 98 98 98 Oxygen Delivery Method Oxygen Flow Rate Fraction of Inspired Oxygen 07/11/25 02:28 07/11/25 02:30 07/11/25 02:30 Temperature Pulse Rate 94 H 99 H 84 Respiratory Rate 29 H 16 14 Blood Pressure Pulse Oximetry 98 96 100 Oxygen Delivery Method Nasal Cannula Nasal Cannula Oxygen Flow Rate 2 2 Fraction of Inspired Oxygen 07/11/25 02:30 07/11/25 02:32 07/11/25 02:34 Temperature Pulse Rate 90 90 Respiratory Rate 16 18 Blood Pressure 160/88 H Pulse Oximetry 99 100 Oxygen Delivery Method Oxygen Flow Rate Fraction of Inspired Oxygen 07/11/25 02:36 07/11/25 02:38 07/11/25 02:40 Temperature Pulse Rate 92 H 98 H 114 H Respiratory Rate 18 20 18 Blood Pressure Pulse Oximetry 96 95 99 Oxygen Delivery Method Oxygen Flow Rate Fraction of Inspired Oxygen 07/11/25 02:42 07/11/25 02:48 07/11/25 02:48 Temperature Pulse Rate 122 H 142 H Respiratory Rate 18 21 Blood Pressure 148/70 H Pulse Oximetry 99 Oxygen Delivery Method Oxygen Flow Rate Fraction of Inspired Oxygen 07/11/25 02:50 07/11/25 02:50 07/11/25 02:52 Temperature Pulse Rate 145 H 122 H Respiratory Rate 23 19 Blood Pressure 174/86 H Pulse Oximetry 95 87 L Oxygen Delivery Method Oxygen Flow Rate Fraction of Inspired Oxygen 07/11/25 02:54 07/11/25 02:54 07/11/25 02:56 Temperature Pulse Rate 116 H 104 H Respiratory Rate 17 13 Blood Pressure 136/75 Pulse Oximetry 98 Oxygen Delivery Method Oxygen Flow Rate Fraction of Inspired Oxygen 07/11/25 02:57 07/11/25 02:57 07/11/25 02:58 Temperature Pulse Rate 101 H 102 H Respiratory Rate 16 13 Blood Pressure 110/60 Pulse Oximetry 98 99 Oxygen Delivery Method Oxygen Flow Rate Fraction of Inspired Oxygen 07/11/25 03:00 07/11/25 03:00 07/11/25 03:02 Temperature Pulse Rate 91 H Respiratory Rate 14 Blood Pressure 101/55 L 107/62 Pulse Oximetry 99 Oxygen Delivery Method Oxygen Flow Rate Fraction of Inspired Oxygen 07/11/25 03:02 07/11/25 03:04 07/11/25 03:05 Temperature Pulse Rate 88 105 H Respiratory Rate 13 19 Blood Pressure 105/67 Pulse Oximetry 98 Oxygen Delivery Method Oxygen Flow Rate Fraction of Inspired Oxygen 07/11/25 03:05 07/11/25 03:06 07/11/25 03:08 Temperature Pulse Rate 108 H 117 H 118 H Respiratory Rate 23 19 20 Blood Pressure Pulse Oximetry 93 94 97 Oxygen Delivery Method Oxygen Flow Rate Fraction of Inspired Oxygen 07/11/25 03:09 07/11/25 03:09 07/11/25 03:10 Temperature Pulse Rate 117 H Respiratory Rate 19 Blood Pressure 107/68 118/69 Pulse Oximetry 97 Oxygen Delivery Method Oxygen Flow Rate Fraction of Inspired Oxygen 07/11/25 03:10 07/11/25 03:12 07/11/25 03:14 Temperature Pulse Rate 117 H 114 H 112 H Respiratory Rate 19 14 14 Blood Pressure Pulse Oximetry 97 98 99 Oxygen Delivery Method Oxygen Flow Rate Fraction of Inspired Oxygen 07/11/25 03:15 07/11/25 03:15 07/11/25 03:16 Temperature Pulse Rate 109 H 109 H Respiratory Rate 14 18 Blood Pressure 112/58 L Pulse Oximetry 98 97 Oxygen Delivery Method Nasal Cannula Oxygen Flow Rate 2 Fraction of Inspired Oxygen 07/11/25 04:04 07/11/25 04:06 07/11/25 04:08 Temperature Pulse Rate 106 H 105 H 105 H Respiratory Rate 15 16 14 Blood Pressure Pulse Oximetry 98 98 98 Oxygen Delivery Method Nasal Cannula Oxygen Flow Rate 2 Fraction of Inspired Oxygen 07/11/25 04:10 07/11/25 04:12 07/11/25 04:14 Temperature Pulse Rate 106 H 107 H 114 H Respiratory Rate 15 19 14 Blood Pressure Pulse Oximetry 98 98 97 Oxygen Delivery Method Nasal Cannula Oxygen Flow Rate 2 Fraction of Inspired Oxygen 07/11/25 04:15 07/11/25 04:15 07/11/25 04:16 Temperature Pulse Rate 107 H 105 H Respiratory Rate 12 13 Blood Pressure 122/58 L Pulse Oximetry 97 97 Oxygen Delivery Method Oxygen Flow Rate Fraction of Inspired Oxygen 07/11/25 04:18 07/11/25 04:20 07/11/25 04:20 Temperature Pulse Rate 104 H 103 H 105 H Respiratory Rate 12 12 Blood Pressure 122/58 L Pulse Oximetry 96 96 Oxygen Delivery Method Oxygen Flow Rate Fraction of Inspired Oxygen 07/11/25 04:22 07/11/25 04:24 07/11/25 04:26 Temperature Pulse Rate 102 H 102 H 100 H Respiratory Rate 12 12 12 Blood Pressure Pulse Oximetry 97 97 97 Oxygen Delivery Method Oxygen Flow Rate Fraction of Inspired Oxygen 07/11/25 04:28 07/11/25 04:30 07/11/25 04:30 Temperature Pulse Rate 101 H 102 H Respiratory Rate 12 12 Blood Pressure 116/55 L Pulse Oximetry 97 96 Oxygen Delivery Method Nasal Cannula Oxygen Flow Rate 2 Fraction of Inspired Oxygen 07/11/25 04:32 07/11/25 04:34 07/11/25 04:36 Temperature Pulse Rate 105 H 102 H 101 H Respiratory Rate 13 14 13 Blood Pressure Pulse Oximetry 97 96 97 Oxygen Delivery Method Oxygen Flow Rate Fraction of Inspired Oxygen 07/11/25 04:38 07/11/25 04:40 07/11/25 04:42 Temperature Pulse Rate 101 H 104 H 103 H Respiratory Rate 14 12 14 Blood Pressure Pulse Oximetry 96 96 96 Oxygen Delivery Method Oxygen Flow Rate Fraction of Inspired Oxygen 07/11/25 04:44 07/11/25 04:45 07/11/25 04:45 Temperature Pulse Rate 101 H 100 H Respiratory Rate 12 12 Blood Pressure 112/55 L Pulse Oximetry 96 96 Oxygen Delivery Method Oxygen Flow Rate Fraction of Inspired Oxygen 07/11/25 04:46 07/11/25 04:48 07/11/25 04:50 Temperature Pulse Rate 101 H 110 H 114 H Respiratory Rate 12 16 19 Blood Pressure Pulse Oximetry 96 97 95 Oxygen Delivery Method Oxygen Flow Rate Fraction of Inspired Oxygen 07/11/25 04:52 07/11/25 04:54 07/11/25 04:56 Temperature Pulse Rate 106 H 119 H 127 H Respiratory Rate 12 16 18 Blood Pressure Pulse Oximetry 96 95 95 Oxygen Delivery Method Oxygen Flow Rate Fraction of Inspired Oxygen 07/11/25 04:58 07/11/25 05:00 07/11/25 05:01 Temperature Pulse Rate 124 H 121 H 119 H Respiratory Rate 16 20 15 Blood Pressure Pulse Oximetry 94 94 Oxygen Delivery Method Nasal Cannula Oxygen Flow Rate 2 Fraction of Inspired Oxygen 07/11/25 05:01 07/11/25 05:02 07/11/25 05:04 Temperature Pulse Rate 115 H 114 H Respiratory Rate 16 15 Blood Pressure 152/72 H Pulse Oximetry 95 95 Oxygen Delivery Method Oxygen Flow Rate Fraction of Inspired Oxygen 07/11/25 05:06 07/11/25 05:08 07/11/25 05:10 Temperature Pulse Rate 113 H 121 H 117 H Respiratory Rate 18 20 21 Blood Pressure Pulse Oximetry 95 95 96 Oxygen Delivery Method Oxygen Flow Rate Fraction of Inspired Oxygen 07/11/25 05:12 07/11/25 05:14 07/11/25 05:15 Temperature Pulse Rate 124 H 110 H Respiratory Rate 23 22 Blood Pressure 145/65 H Pulse Oximetry 95 95 Oxygen Delivery Method Oxygen Flow Rate Fraction of Inspired Oxygen 07/11/25 05:15 07/11/25 05:16 07/11/25 05:18 Temperature Pulse Rate 114 H 110 H 109 H Respiratory Rate 12 12 12 Blood Pressure Pulse Oximetry 97 97 97 Oxygen Delivery Method Oxygen Flow Rate Fraction of Inspired Oxygen 07/11/25 05:20 07/11/25 05:22 07/11/25 05:24 Temperature Pulse Rate 104 H 112 H 115 H Respiratory Rate 15 16 18 Blood Pressure Pulse Oximetry 97 97 97 Oxygen Delivery Method Oxygen Flow Rate Fraction of Inspired Oxygen Fraction of Inspired Oxygen 28 SaO2/FiO2 Ratio 342 Oxygen Delivery Method Nasal Cannula Oxygen Flow Rate 2 Narrative Exam Narrative: Patient to be examined by day hospitalist as remote exam equipment not available before shift changed. Communicated to day hospitalist. Objective Labs 07/10/25 23:55 07/10/25 23:55 Labs: Laboratory Results - last 24 hr 07/10/25 23:55 WBC 9.8 RBC 4.40 Hgb 14.0 Hct 41.4 MCV 94.2 MCH 31.8 MCHC 33.8 RDW 13.3 Plt Count 267 Neut % (Auto) 61.5 Lymph % (Auto) 31.5 [place] % (Auto) 5.6 Eos % (Auto) 0.9 L Baso % (Auto) 0.5 Neut # (Auto) 6000 Lymph # (Auto) 3100 [place] # (Auto) 600 Eos # (Auto) 100 Baso # (Auto) 0 Sodium 131 L Potassium 4.6 Chloride 92 L Carbon Dioxide 29 BUN 15 Creatinine 0.54 Estimated GFR > 60 BUN/Creatinine Ratio 27.8 H Glucose 111 H Calcium 9.5 Total Bilirubin 0.4 AST 41 H ALT 43 H Alkaline Phosphatase 60 Troponin I < 0.012 Total Protein 6.9 Albumin 4.3 Globulin 2.6 Albumin/Globulin Ratio 1.7 Assessment & Plan Assessment and plan (1) Hematoma of occipital region of scalp: Status: Acute (2) Weakness: Status: Acute Assessment & Plan narrative: 74F with ALS and OA presents after mechanical fall and superficial head injury not requiring repair. 1. Mechanical fall without syncope with occipital hematoma not requiring repair, POA 2. Generalized weakness, POA 3. Mild hyponatremia, POA 4. Mild transaminitis, POA 5. ALS 6. Osteoarthritis L-spine 7. HTN 8. Hyperlipidemia 9. Hypothyroidism 10. GERD 11. Asthma with mild hypoxia, unknown baseline, POA Plan: 1. Admit to observation, telemetry 2. Check urinalysis and thyroid function to rule out other causes of weakness 3. PT/OT evaluations 4. Fall precautions 5. Cardiac diet 6. Local wound care to occiput 7. Labs in AM - BMP, CBC, Mg 8. Resume home meds once verified Code: Log Handler-Based Coding :: [TOTAL MINUTES] spent with patient and on the chart (including review of chart, obtaining history, exam, reviewing outside data, placing orders, documenting exam and treatment plan, and counseling patient) on [DATE].
[2025-07-11 06:38] LABS: Lipase 74 U/L (23-300); Magnesium 1.5 mg/dL (1.6-2.3)
[2025-07-11 06:50] LABS: NT-proBNP (BNP-Adult 18+) 251 pg/mL (<450); Troponin I < 0.012 ng/mL (0.01-0.034)
[2025-07-11] MEDS: LACTATED RINGERS 1,000 ML 125 ML IV ×3 (07:05→22:33)
[2025-07-11 07:47] LABS: TSH w/ Reflex to FT4 2.67 uIU/mL (0.47-4.68)
--- NOTE | 2025-07-11 07:50 | DI.CT.S_ITS ---
PROCEDURE: CT HEAD/BRAIN WO CON INDICATIONS: subdural TECHNIQUE: Noncontrast 4.5 mm thick angled axial sections acquired from the foramen magnum to the vertex, with coronal and sagittal reformats. For radiation dose reduction, the following was used: automated exposure control, adjustment of mA and/or kV according to patient size. COMPARISON: [facility], CT, CT HEAD/BRAIN WO CON, 07/11/2025, 0:29. FINDINGS: CSF spaces: Basal cisterns are patent. No extra-axial fluid collections. Ventricles are normal in size and shape. Brain: Persistent but improving thin 2-3 mm subdural hematoma noted over the left tentorium. No midline shift. Stone-white matter interface is normal. Skull and face: Left parietal scalp hematoma. No skull fracture Sinuses: Visualized sinuses and mastoids are clear. IMPRESSION: Persistent but improving thin 2-3 mm subdural hematoma noted layering over the left tentorium. No mass effect. No midline shift Approved by: Duy Navas M.D. on 07/11/2025 at 9:05
--- NOTE | 2025-07-11 08:26 | PC.NURSE ---
Addendum entered by Alecia france RN 07/11/25 08:51: error in documentation - paged dr owen at 821 Original Note: dr owen paged at 2021 to call the ED at this time. rn in room to assist pt to br. pt unable to void on commode at this time. patient increasingly more agitated. not following commands consistently. blood pressure has increased from baseline. heartrate spiking into 130s with movement. family declining repeat head ct until dr owen rounds on them. pt educated on importance of repeat head ct to assess condition of brain bleed. family insisting to speak with . dr lee called to bedside to provide education. family continues to insist to speak with dr owen and declining ct scan. family states pt had to be fully sedated by anesthesia for prior ct scan in the evening. blood is saturating through bandages on head.
--- NOTE | 2025-07-11 09:47 | PC.NURSE ---
accompanied pt to ct alongside massage operator pt tolerated ct well pt back in room 0938 and pt head redressed at this time due to significant amt of bleeding saturating bandages and pillows pt sleepy after ct scan
--- NOTE | 2025-07-11 10:31 | PC.NURSE ---
pt anxious reporting she cant breathe while sitting uright 90 degree angle in bed, spo2 wnl on 2lpm nc patient wants legs off side of bed rn explains to and patient the safety concerns of this as well as concern for weakness and using extra muscles to sit upright increasing trouble breathing. family insists on moving patients legs off the side of the bed despite rn education. at bedside supporting patient upright
--- NOTE | 2025-07-11 10:48 | PC.NURSE ---
rt called to bedside for assessment of pt. spo2 wnl, slightly labored respirations noted. pt remains on 2lmp nc. reporting increased shortness of breath. rt at bedside at this time
--- NOTE | 2025-07-11 10:56 | PC.NURSE ---
spoke with dr owen at this time regarding patient remaining npo - provider states it is ok to give oral magnesium tablets at this time
--- NOTE | 2025-07-11 11:06 | PC.NURSE ---
patient can not swallow pills and has significant coughing episode pt to remain npo kotal aware no new orders recd for mag replacement
--- NOTE | 2025-07-11 11:37 | PC.NURSE ---
atemped to call dr owen regarding pt agitation/air hunger/anxiety. no answer. [employer] message attemped by [facility] for brayden to contact rn. pt has elevated hr elevated bp
--- NOTE | 2025-07-11 11:58 | PC.NURSE ---
nc turned up to 6lpm after dose of ativan pt breathing through mouth but using mask prior was not tolerated by patient
--- NOTE | 2025-07-11 12:22 | DI.RAD.S_ITS ---
PROCEDURE: XR CHEST 1V INDICATIONS: shortness of breath TECHNIQUE: One view of the chest was acquired. COMPARISON: [facility], CR, XR CHEST 1V, 07/11/2025, 4:47. FINDINGS: Surgical changes and devices: None. Lungs and pleura: Lungs are clear. No pleural effusions or pneumothorax. Mediastinum: Mediastinal contours appear normal. Heart size is normal. Bones and chest wall: No suspicious bony lesions. Overlying soft tissues appear unremarkable. IMPRESSION: No acute cardiopulmonary abnormality is seen. Approved by: Duy Navas M.D. on 07/11/2025 at 12:29
[2025-07-11] MEDS: MAGNESIUM SULFATE 2 GM/50 ML PIGGYBACK IV (12:34)
--- NOTE | 2025-07-11 14:00 | P.PN_ITS ---
Subjective Subjective Date Patient Seen: 07/11/25 Time Patient Seen: 08:30 Interval history: Admission note: 74F with PMH of HTN, hyperlipidemia, hypothyroidism, GERD, asthma not on oxygen who walks with a walker due to osteoarthritis and ALS presented to ED after a mechanical fall resulting in hitting of head without syncope, chest pain, dyspnea, incontinence, or spinal pain. She developed a hematoma on the occiput. Imaging reports are not released yet but per ED physician, the preliminary reads showed no acute process on CT head, CT C-spine, CXR, and CT L-spine. Labs were only notable for mild hyponatremia of 131 and minimally elevated transaminases. She was found to be mildly hypoxic requiring 2L oxygen. She also required sedation because of chronic back pain from trying to lie flat supine for CT. Interval history 07/11: The patient's initial head CT was read as showing no acute process, though subsequently reported a 2-3 mm trace left subdural hematoma along the left tentorium cerebella. A repeat head CT was obtained showing a stable subdural hematoma. She became hypoxic with oxygen saturations diminished into the 80s % range, responding to supplemental oxygen and bronchodilators, noting history of severe asthma in the past. The patient became very anxious and tachycardic and hypertensive, responding to lorazepam. She is seen with her Domingo at bedside. Exam Vital Signs (past 8 hours): - 07/11/25 06:02 07/11/25 06:04 07/11/25 06:06 Pulse Rate 99 H 99 H 100 H Respiratory Rate 13 18 12 Blood Pressure Pulse Oximetry 97 97 97 Oxygen Delivery Method Oxygen Flow Rate 07/11/25 06:08 07/11/25 06:10 07/11/25 06:12 Pulse Rate 101 H 105 H 108 H Respiratory Rate 14 13 15 Blood Pressure Pulse Oximetry 97 97 96 Oxygen Delivery Method Oxygen Flow Rate 07/11/25 06:14 07/11/25 06:16 07/11/25 06:18 Pulse Rate 106 H 106 H 104 H Respiratory Rate 12 12 12 Blood Pressure Pulse Oximetry 96 96 96 Oxygen Delivery Method Oxygen Flow Rate 07/11/25 06:20 07/11/25 06:22 07/11/25 06:24 Pulse Rate 103 H 105 H 108 H Respiratory Rate 16 18 12 Blood Pressure Pulse Oximetry 96 96 96 Oxygen Delivery Method Oxygen Flow Rate 07/11/25 06:26 07/11/25 06:28 07/11/25 06:30 Pulse Rate 101 H 99 H 97 H Respiratory Rate 14 12 12 Blood Pressure Pulse Oximetry 96 97 97 Oxygen Delivery Method Oxygen Flow Rate 07/11/25 06:30 07/11/25 06:32 07/11/25 06:34 Pulse Rate 96 H 97 H Respiratory Rate 12 12 Blood Pressure 103/52 L Pulse Oximetry 97 97 Oxygen Delivery Method Oxygen Flow Rate 07/11/25 06:36 07/11/25 06:38 07/11/25 06:40 Pulse Rate 99 H 97 H 100 H Respiratory Rate 11 L 12 12 Blood Pressure Pulse Oximetry 97 97 97 Oxygen Delivery Method Oxygen Flow Rate 07/11/25 06:42 07/11/25 06:44 07/11/25 06:46 Pulse Rate 97 H 94 H 93 H Respiratory Rate 9 L 9 L 10 L Blood Pressure Pulse Oximetry 98 97 98 Oxygen Delivery Method Oxygen Flow Rate 07/11/25 06:48 07/11/25 06:50 07/11/25 06:52 Pulse Rate 92 H 93 H 92 H Respiratory Rate 9 L 11 L 10 L Blood Pressure Pulse Oximetry 98 97 97 Oxygen Delivery Method Oxygen Flow Rate 07/11/25 06:54 07/11/25 06:56 07/11/25 06:58 Pulse Rate 95 H 95 H 92 H Respiratory Rate 9 L 10 L 11 L Blood Pressure Pulse Oximetry 97 98 97 Oxygen Delivery Method Oxygen Flow Rate 07/11/25 07:00 07/11/25 07:00 07/11/25 07:02 Pulse Rate 92 H 104 H Respiratory Rate 11 L 19 Blood Pressure 89/54 L Pulse Oximetry 97 98 Oxygen Delivery Method Oxygen Flow Rate 07/11/25 07:02 07/11/25 07:04 07/11/25 07:06 Pulse Rate 103 H 103 H Respiratory Rate 12 13 Blood Pressure 111/54 L Pulse Oximetry 97 97 Oxygen Delivery Method Oxygen Flow Rate 07/11/25 07:08 07/11/25 07:10 07/11/25 07:12 Pulse Rate 106 H 106 H 97 H Respiratory Rate 16 13 13 Blood Pressure Pulse Oximetry 97 97 97 Oxygen Delivery Method Oxygen Flow Rate 07/11/25 07:14 07/11/25 07:15 07/11/25 07:15 Pulse Rate 98 H 104 H Respiratory Rate 11 L 12 Blood Pressure 118/54 L Pulse Oximetry 97 97 Oxygen Delivery Method Oxygen Flow Rate 07/11/25 07:16 07/11/25 07:18 07/11/25 07:20 Pulse Rate 102 H 107 H 106 H Respiratory Rate 12 13 12 Blood Pressure Pulse Oximetry 98 97 97 Oxygen Delivery Method Oxygen Flow Rate 07/11/25 07:22 07/11/25 07:24 07/11/25 07:26 Pulse Rate 108 H 110 H 114 H Respiratory Rate 14 19 16 Blood Pressure Pulse Oximetry 97 97 97 Oxygen Delivery Method Oxygen Flow Rate 07/11/25 07:28 07/11/25 07:30 07/11/25 07:30 Pulse Rate 115 H 116 H Respiratory Rate 13 14 Blood Pressure 132/58 L Pulse Oximetry 97 97 Oxygen Delivery Method Oxygen Flow Rate 07/11/25 07:32 07/11/25 07:34 07/11/25 07:36 Pulse Rate 114 H 110 H 106 H Respiratory Rate 17 12 12 Blood Pressure Pulse Oximetry 97 97 97 Oxygen Delivery Method Oxygen Flow Rate 07/11/25 07:38 07/11/25 07:40 07/11/25 07:42 Pulse Rate 103 H 101 H 100 H Respiratory Rate 12 10 L 12 Blood Pressure Pulse Oximetry 98 98 98 Oxygen Delivery Method Oxygen Flow Rate 07/11/25 07:44 07/11/25 07:45 07/11/25 07:45 Pulse Rate 98 H 97 H Respiratory Rate 10 L 11 L Blood Pressure 118/56 L Pulse Oximetry 98 99 Oxygen Delivery Method Oxygen Flow Rate 07/11/25 07:46 07/11/25 07:48 07/11/25 07:50 Pulse Rate 96 H 95 H 97 H Respiratory Rate 10 L 10 L 12 Blood Pressure Pulse Oximetry 98 98 98 Oxygen Delivery Method Oxygen Flow Rate 07/11/25 07:52 07/11/25 07:54 07/11/25 07:56 Pulse Rate 105 H 105 H 123 H Respiratory Rate 11 L 14 36 H Blood Pressure Pulse Oximetry 98 98 98 Oxygen Delivery Method Oxygen Flow Rate 07/11/25 07:58 07/11/25 08:00 07/11/25 08:00 Pulse Rate 133 H 128 H Respiratory Rate 46 H 17 Blood Pressure 165/80 H Pulse Oximetry 93 94 Oxygen Delivery Method Oxygen Flow Rate 07/11/25 08:02 07/11/25 08:04 07/11/25 08:06 Pulse Rate 118 H 123 H 119 H Respiratory Rate 18 29 H 18 Blood Pressure Pulse Oximetry 96 96 96 Oxygen Delivery Method Oxygen Flow Rate 07/11/25 08:08 07/11/25 08:10 07/11/25 08:12 Pulse Rate 110 H 114 H 119 H Respiratory Rate 17 22 17 Blood Pressure Pulse Oximetry 96 97 96 Oxygen Delivery Method Oxygen Flow Rate 07/11/25 08:14 07/11/25 08:15 07/11/25 08:15 Pulse Rate 127 H 128 H Respiratory Rate 35 H 20 Blood Pressure 173/79 H Pulse Oximetry 95 93 Oxygen Delivery Method Oxygen Flow Rate 07/11/25 08:16 07/11/25 08:18 07/11/25 08:20 Pulse Rate 123 H 123 H 124 H Respiratory Rate 23 23 24 Blood Pressure Pulse Oximetry 95 91 95 Oxygen Delivery Method Oxygen Flow Rate 07/11/25 08:22 07/11/25 08:24 07/11/25 08:26 Pulse Rate 117 H 115 H 108 H Respiratory Rate 17 21 17 Blood Pressure Pulse Oximetry 95 96 97 Oxygen Delivery Method Oxygen Flow Rate 07/11/25 08:28 07/11/25 08:30 07/11/25 08:30 Pulse Rate 112 H 107 H Respiratory Rate 16 18 Blood Pressure 150/61 H Pulse Oximetry 97 97 Oxygen Delivery Method Oxygen Flow Rate 07/11/25 08:32 07/11/25 08:34 07/11/25 08:36 Pulse Rate 101 H 99 H 104 H Respiratory Rate 15 16 18 Blood Pressure Pulse Oximetry 97 97 97 Oxygen Delivery Method Oxygen Flow Rate 07/11/25 08:38 07/11/25 08:40 07/11/25 08:42 Pulse Rate 105 H 107 H 102 H Respiratory Rate 22 18 21 Blood Pressure Pulse Oximetry 97 96 97 Oxygen Delivery Method Oxygen Flow Rate 07/11/25 08:44 07/11/25 08:45 07/11/25 08:45 Pulse Rate 101 H 101 H Respiratory Rate 17 16 Blood Pressure 147/67 H Pulse Oximetry 97 96 Oxygen Delivery Method Oxygen Flow Rate 07/11/25 08:46 07/11/25 08:48 07/11/25 08:50 Pulse Rate 101 H 98 H 97 H Respiratory Rate 18 20 18 Blood Pressure Pulse Oximetry 97 97 97 Oxygen Delivery Method Oxygen Flow Rate 07/11/25 08:52 07/11/25 08:54 07/11/25 08:56 Pulse Rate 96 H 95 H 98 H Respiratory Rate 18 20 17 Blood Pressure Pulse Oximetry 98 98 97 Oxygen Delivery Method Oxygen Flow Rate 07/11/25 08:58 07/11/25 09:00 07/11/25 09:00 Pulse Rate 96 H 95 H Respiratory Rate 14 15 Blood Pressure 148/69 H Pulse Oximetry 98 98 Oxygen Delivery Method Oxygen Flow Rate 07/11/25 09:02 07/11/25 09:04 07/11/25 09:06 Pulse Rate 96 H 99 H 99 H Respiratory Rate 17 17 16 Blood Pressure Pulse Oximetry 97 97 96 Oxygen Delivery Method Oxygen Flow Rate 07/11/25 09:08 07/11/25 09:10 07/11/25 09:12 Pulse Rate 99 H 99 H 101 H Respiratory Rate 14 17 15 Blood Pressure Pulse Oximetry 97 98 97 Oxygen Delivery Method Oxygen Flow Rate 07/11/25 09:14 07/11/25 09:15 07/11/25 09:15 Pulse Rate 105 H 106 H Respiratory Rate 21 20 Blood Pressure 149/65 H Pulse Oximetry 97 97 Oxygen Delivery Method Oxygen Flow Rate 07/11/25 09:16 07/11/25 09:18 07/11/25 09:20 Pulse Rate 104 H 102 H 101 H Respiratory Rate 17 20 17 Blood Pressure Pulse Oximetry 97 98 98 Oxygen Delivery Method Oxygen Flow Rate 07/11/25 09:22 07/11/25 09:22 07/11/25 09:24 Pulse Rate 102 H 107 H Respiratory Rate 15 24 Blood Pressure 142/65 H Pulse Oximetry 98 97 Oxygen Delivery Method Oxygen Flow Rate 07/11/25 09:25 07/11/25 09:25 07/11/25 09:26 Pulse Rate 109 H 108 H Respiratory Rate 24 29 H Blood Pressure 125/59 L Pulse Oximetry 97 97 Oxygen Delivery Method Oxygen Flow Rate 07/11/25 09:27 07/11/25 09:27 07/11/25 09:28 Pulse Rate 103 H 96 H Respiratory Rate 28 H 25 H Blood Pressure 115/53 L Pulse Oximetry 97 97 Oxygen Delivery Method Oxygen Flow Rate 07/11/25 09:30 07/11/25 09:30 07/11/25 09:32 Pulse Rate 114 H 108 H Respiratory Rate Blood Pressure 127/60 Pulse Oximetry 97 95 Oxygen Delivery Method Oxygen Flow Rate 07/11/25 09:34 07/11/25 09:34 07/11/25 09:36 Pulse Rate 108 H 105 H Respiratory Rate 19 18 Blood Pressure 132/62 Pulse Oximetry 95 95 Oxygen Delivery Method Oxygen Flow Rate 07/11/25 09:38 07/11/25 09:40 07/11/25 09:42 Pulse Rate 100 H 98 H 97 H Respiratory Rate 17 16 14 Blood Pressure Pulse Oximetry 95 95 97 Oxygen Delivery Method Oxygen Flow Rate 07/11/25 09:44 07/11/25 09:45 07/11/25 09:45 Pulse Rate 95 H 94 H Respiratory Rate 16 15 Blood Pressure 119/57 L Pulse Oximetry 97 96 Oxygen Delivery Method Oxygen Flow Rate 07/11/25 09:46 07/11/25 09:48 07/11/25 09:50 Pulse Rate 94 H 100 H 94 H Respiratory Rate 14 19 16 Blood Pressure Pulse Oximetry 96 96 96 Oxygen Delivery Method Oxygen Flow Rate 07/11/25 09:52 07/11/25 09:54 07/11/25 09:56 Pulse Rate 94 H 94 H 93 H Respiratory Rate 20 20 18 Blood Pressure Pulse Oximetry 97 96 96 Oxygen Delivery Method Oxygen Flow Rate 07/11/25 09:58 07/11/25 10:00 07/11/25 10:00 Pulse Rate 95 H 101 H Respiratory Rate 18 20 Blood Pressure 126/61 Pulse Oximetry 98 97 Oxygen Delivery Method Oxygen Flow Rate 07/11/25 10:02 07/11/25 10:04 07/11/25 10:06 Pulse Rate 106 H 110 H 109 H Respiratory Rate 24 26 H 24 Blood Pressure Pulse Oximetry 97 95 94 Oxygen Delivery Method Oxygen Flow Rate 07/11/25 10:08 07/11/25 10:10 07/11/25 10:12 Pulse Rate 102 H 99 H 99 H Respiratory Rate 15 17 16 Blood Pressure Pulse Oximetry 95 95 95 Oxygen Delivery Method Oxygen Flow Rate 07/11/25 10:14 07/11/25 10:15 07/11/25 10:15 Pulse Rate 100 H 100 H Respiratory Rate 17 17 Blood Pressure 144/66 H Pulse Oximetry 95 94 Oxygen Delivery Method Oxygen Flow Rate 07/11/25 10:16 07/11/25 10:18 07/11/25 10:20 Pulse Rate 103 H 103 H 102 H Respiratory Rate 20 22 21 Blood Pressure Pulse Oximetry 94 96 96 Oxygen Delivery Method Oxygen Flow Rate 07/11/25 10:22 07/11/25 10:24 07/11/25 10:26 Pulse Rate 99 H 102 H 101 H Respiratory Rate 21 19 17 Blood Pressure Pulse Oximetry 95 95 93 Oxygen Delivery Method Oxygen Flow Rate 07/11/25 10:28 07/11/25 10:30 07/11/25 10:30 Pulse Rate 99 H 94 H Respiratory Rate 17 15 Blood Pressure 130/59 L Pulse Oximetry 96 95 Oxygen Delivery Method Oxygen Flow Rate 07/11/25 10:32 07/11/25 10:34 07/11/25 10:36 Pulse Rate 100 H 101 H 110 H Respiratory Rate 17 22 24 Blood Pressure Pulse Oximetry 97 97 96 Oxygen Delivery Method Oxygen Flow Rate 07/11/25 10:38 07/11/25 10:40 07/11/25 10:42 Pulse Rate 109 H 112 H 112 H Respiratory Rate 18 25 H 26 H Blood Pressure Pulse Oximetry 95 95 95 Oxygen Delivery Method Oxygen Flow Rate 07/11/25 10:44 07/11/25 10:45 07/11/25 10:45 Pulse Rate 114 H 109 H Respiratory Rate 25 H 18 Blood Pressure 135/59 L Pulse Oximetry 94 95 Oxygen Delivery Method Oxygen Flow Rate 07/11/25 10:46 07/11/25 10:48 07/11/25 10:50 Pulse Rate 102 H 100 H 105 H Respiratory Rate 17 17 18 Blood Pressure Pulse Oximetry 95 94 95 Oxygen Delivery Method Oxygen Flow Rate 07/11/25 10:52 07/11/25 10:54 07/11/25 10:56 Pulse Rate 107 H 104 H 106 H Respiratory Rate 19 21 19 Blood Pressure Pulse Oximetry 95 95 94 Oxygen Delivery Method Oxygen Flow Rate 07/11/25 10:58 07/11/25 11:00 07/11/25 11:00 Pulse Rate 108 H 119 H Respiratory Rate 21 20 Blood Pressure 172/79 H Pulse Oximetry 94 92 Oxygen Delivery Method Oxygen Flow Rate 07/11/25 11:02 07/11/25 11:04 07/11/25 11:06 Pulse Rate 123 H 123 H 120 H Respiratory Rate 25 H 27 H 21 Blood Pressure Pulse Oximetry 92 92 90 L Oxygen Delivery Method Oxygen Flow Rate 07/11/25 11:08 07/11/25 11:10 07/11/25 11:12 Pulse Rate 122 H 119 H 118 H Respiratory Rate 19 21 18 Blood Pressure Pulse Oximetry 92 93 93 Oxygen Delivery Method Oxygen Flow Rate 07/11/25 11:14 07/11/25 11:15 07/11/25 11:15 Pulse Rate 118 H 118 H Respiratory Rate 20 19 Blood Pressure 171/83 H Pulse Oximetry 94 94 Oxygen Delivery Method Oxygen Flow Rate 07/11/25 11:16 07/11/25 11:16 07/11/25 11:18 Pulse Rate 107 H 117 H 117 H Respiratory Rate 18 18 19 Blood Pressure Pulse Oximetry 94 95 92 Oxygen Delivery Method Nasal Cannula Oxygen Flow Rate 2 07/11/25 11:20 07/11/25 11:22 07/11/25 11:24 Pulse Rate 111 H 107 H 110 H Respiratory Rate 17 17 18 Blood Pressure Pulse Oximetry 93 94 94 Oxygen Delivery Method Oxygen Flow Rate 07/11/25 11:26 07/11/25 11:28 07/11/25 11:30 Pulse Rate 119 H 120 H Respiratory Rate 26 H 26 H Blood Pressure 160/77 H Pulse Oximetry 94 94 Oxygen Delivery Method Oxygen Flow Rate 07/11/25 11:30 07/11/25 11:32 07/11/25 11:34 Pulse Rate 119 H 119 H 120 H Respiratory Rate 19 19 19 Blood Pressure Pulse Oximetry 93 92 92 Oxygen Delivery Method Oxygen Flow Rate 07/11/25 11:36 07/11/25 11:38 07/11/25 11:40 Pulse Rate 117 H 117 H 118 H Respiratory Rate 19 19 18 Blood Pressure Pulse Oximetry 91 92 93 Oxygen Delivery Method Oxygen Flow Rate 07/11/25 11:42 07/11/25 11:44 07/11/25 11:45 Pulse Rate 118 H 119 H Respiratory Rate 21 25 H Blood Pressure 184/86 H Pulse Oximetry 92 91 Oxygen Delivery Method Oxygen Flow Rate 07/11/25 11:45 07/11/25 11:46 07/11/25 11:48 Pulse Rate 122 H 119 H 120 H Respiratory Rate 24 21 20 Blood Pressure Pulse Oximetry 89 L 90 L 91 Oxygen Delivery Method Oxygen Flow Rate 07/11/25 11:50 07/11/25 11:52 07/11/25 11:53 Pulse Rate 118 H 111 H Respiratory Rate 18 17 Blood Pressure 159/77 H Pulse Oximetry 91 91 Oxygen Delivery Method Oxygen Flow Rate 07/11/25 11:53 07/11/25 11:54 07/11/25 11:56 Pulse Rate 109 H 107 H 100 H Respiratory Rate 18 16 15 Blood Pressure Pulse Oximetry 90 L 85 L 92 Oxygen Delivery Method Oxygen Flow Rate 07/11/25 11:58 07/11/25 12:00 07/11/25 12:00 Pulse Rate 98 H 94 H Respiratory Rate 17 17 Blood Pressure 138/64 Pulse Oximetry 94 95 Oxygen Delivery Method Oxygen Flow Rate 07/11/25 12:02 07/11/25 12:04 07/11/25 12:06 Pulse Rate 92 H 99 H 112 H Respiratory Rate 15 15 21 Blood Pressure Pulse Oximetry 94 94 82 L Oxygen Delivery Method Oxygen Flow Rate 07/11/25 12:08 07/11/25 12:10 07/11/25 12:12 Pulse Rate 112 H 117 H 119 H Respiratory Rate 17 21 19 Blood Pressure Pulse Oximetry 94 94 91 Oxygen Delivery Method Oxygen Flow Rate 07/11/25 12:14 07/11/25 12:16 07/11/25 12:16 Pulse Rate 130 H 125 H Respiratory Rate 19 16 Blood Pressure 210/98 H Pulse Oximetry 91 92 Oxygen Delivery Method Oxygen Flow Rate 07/11/25 12:18 07/11/25 12:20 07/11/25 12:22 Pulse Rate 112 H 102 H 103 H Respiratory Rate 15 14 16 Blood Pressure Pulse Oximetry 97 97 98 Oxygen Delivery Method Oxygen Flow Rate 07/11/25 12:24 07/11/25 12:25 07/11/25 12:25 Pulse Rate 100 H 97 H Respiratory Rate 15 14 Blood Pressure 135/63 Pulse Oximetry 97 97 Oxygen Delivery Method Oxygen Flow Rate 07/11/25 12:26 07/11/25 12:28 07/11/25 12:30 Pulse Rate 93 H 97 H 93 H Respiratory Rate 14 15 14 Blood Pressure Pulse Oximetry 97 97 97 Oxygen Delivery Method Oxygen Flow Rate 07/11/25 12:30 07/11/25 12:32 07/11/25 12:34 Pulse Rate 89 89 Respiratory Rate 15 15 Blood Pressure 111/54 L Pulse Oximetry 97 98 Oxygen Delivery Method Oxygen Flow Rate 07/11/25 12:36 07/11/25 12:38 07/11/25 12:40 Pulse Rate 86 91 H 99 H Respiratory Rate 14 13 15 Blood Pressure Pulse Oximetry 98 98 99 Oxygen Delivery Method Oxygen Flow Rate 07/11/25 12:42 07/11/25 12:44 07/11/25 12:45 Pulse Rate 103 H 110 H Respiratory Rate 15 18 Blood Pressure 179/107 H Pulse Oximetry 95 95 Oxygen Delivery Method Oxygen Flow Rate 07/11/25 12:45 07/11/25 12:46 07/11/25 12:48 Pulse Rate 114 H 119 H 119 H Respiratory Rate 19 18 17 Blood Pressure Pulse Oximetry 90 L 89 L 94 Oxygen Delivery Method Oxygen Flow Rate 07/11/25 12:50 07/11/25 12:52 07/11/25 12:54 Pulse Rate 128 H 128 H 112 H Respiratory Rate 19 17 15 Blood Pressure Pulse Oximetry 91 92 96 Oxygen Delivery Method Oxygen Flow Rate 07/11/25 12:56 07/11/25 12:58 07/11/25 13:00 Pulse Rate 103 H 110 H 129 H Respiratory Rate 15 17 19 Blood Pressure Pulse Oximetry 96 95 89 L Oxygen Delivery Method Oxygen Flow Rate 07/11/25 13:01 07/11/25 13:01 07/11/25 13:02 Pulse Rate 132 H 132 H Respiratory Rate 19 19 Blood Pressure 196/93 H Pulse Oximetry 89 L 87 L Oxygen Delivery Method Oxygen Flow Rate 07/11/25 13:04 07/11/25 13:06 07/11/25 13:08 Pulse Rate 116 H 114 H 113 H Respiratory Rate 16 18 17 Blood Pressure Pulse Oximetry 97 97 96 Oxygen Delivery Method Oxygen Flow Rate 07/11/25 13:10 07/11/25 13:12 07/11/25 13:14 Pulse Rate 109 H 105 H 110 H Respiratory Rate 16 15 16 Blood Pressure Pulse Oximetry 96 96 95 Oxygen Delivery Method Nasal Cannula Oxygen Flow Rate 07/11/25 13:15 07/11/25 13:15 07/11/25 13:16 Pulse Rate 115 H 111 H Respiratory Rate 17 16 Blood Pressure 166/74 H Pulse Oximetry 96 96 Oxygen Delivery Method Nasal Cannula Oxygen Flow Rate 07/11/25 13:18 07/11/25 13:20 07/11/25 13:22 Pulse Rate 108 H 103 H 110 H Respiratory Rate 16 15 19 Blood Pressure Pulse Oximetry 97 96 95 Oxygen Delivery Method Oxygen Flow Rate 07/11/25 13:24 07/11/25 13:26 07/11/25 13:28 Pulse Rate 112 H 109 H 120 H Respiratory Rate 16 16 18 Blood Pressure Pulse Oximetry 96 96 95 Oxygen Delivery Method Oxygen Flow Rate 07/11/25 13:30 07/11/25 13:30 07/11/25 13:32 Pulse Rate 110 H 107 H Respiratory Rate 16 17 Blood Pressure 156/71 H Pulse Oximetry 96 96 Oxygen Delivery Method Oxygen Flow Rate 07/11/25 13:34 07/11/25 13:36 07/11/25 13:38 Pulse Rate 111 H 119 H 111 H Respiratory Rate 19 17 17 Blood Pressure Pulse Oximetry 95 96 96 Oxygen Delivery Method Oxygen Flow Rate 07/11/25 13:40 07/11/25 13:42 07/11/25 13:44 Pulse Rate 117 H 115 H 114 H Respiratory Rate 19 18 18 Blood Pressure Pulse Oximetry 96 96 95 Oxygen Delivery Method Oxygen Flow Rate 07/11/25 13:45 07/11/25 13:45 Pulse Rate 115 H Respiratory Rate 19 Blood Pressure 162/75 H Pulse Oximetry 95 Oxygen Delivery Method Oxygen Flow Rate Fraction of Inspired Oxygen 28 SaO2/FiO2 Ratio 342 Oxygen Delivery Method Nasal Cannula Oxygen Flow Rate 2 Narrative Exam Narrative: GENERAL: This is a thin, frail anxious appearing patient. HEAD: Head bandage in place, with trace amounts of blood in the right side. EYES: Pupils equal round and reactive. Extraocular motions intact. No scleral icterus. No injection or drainage. ENT: Mucous membranes pink and moist. NECK: Trachea midline. No JVD, bruits or lymphadenopathy. Supple, nontender, no meningeal signs. CARDIOVASCULAR: Regular rate and rhythm without murmurs, gallops, or rubs. RESPIRATORY: Diminished breath sounds throughout, decreased in bases. GASTROINTESTINAL: Abdomen soft, non-tender, nondistended. EXTREMITIES: No clubbing, cyanosis, or edema. BACK: Nontender without deformity or crepitance. No flank tenderness. NEUROLOGIC: Alert, oriented, speech fluent, bilateral upper and lower extremity weakness, worse in the upper extremities, without focal deficit apparent. DERMATOLOGIC: No rashes or skin lesions. Objective Imaging *: Radiologist's impression: 1. Cervical spine CT: No acute displaced fracture or traumatic subluxation. 2. Head CT: Suspected trace left subdural hemorrhage measuring 2-3 mm in thickness. Left parietal scalp hematoma without underlying calvarial fracture. 3. Chest x-ray: No acute cardiopulmonary abnormality is seen. 4. Lumbar spine CT: No acute fracture or traumatic subluxation. Moderate multilevel degenerative changes. Additional findings as above. 5. Repeat head CT: Persistent but improving thin 2-3 mm subdural hematoma noted layering over the left tentorium. No mass effect. No midline shift 6. Chest x-ray: No acute cardiopulmonary abnormality is seen. Labs 07/10/25 23:55 07/10/25 23:55 Labs: Laboratory Results - last 24 hr 07/10/25 07/11/25 23:55 06:14 WBC 9.8 RBC 4.40 Hgb 14.0 Hct 41.4 MCV 94.2 MCH 31.8 MCHC 33.8 RDW 13.3 Plt Count 267 Neut % (Auto) 61.5 Lymph % (Auto) 31.5 Schleicher % (Auto) 5.6 Eos % (Auto) 0.9 L Baso % (Auto) 0.5 Neut # (Auto) 6000 Lymph # (Auto) 3100 Schleicher # (Auto) 600 Eos # (Auto) 100 Baso # (Auto) 0 Sodium 131 L Potassium 4.6 Chloride 92 L Carbon Dioxide 29 BUN 15 Creatinine 0.54 Estimated GFR > 60 BUN/Creatinine Ratio 27.8 H Glucose 111 H Calcium 9.5 Magnesium 1.5 L Total Bilirubin 0.4 AST 41 H ALT 43 H Alkaline Phosphatase 60 Troponin I < 0.012 < 0.012 NT-Pro-B Natriuret Pep 251 Total Protein 6.9 Albumin 4.3 Globulin 2.6 Albumin/Globulin Ratio 1.7 Lipase 74 TSH 2.67 PFSH Medical History Fasciculations Tremor Ataxic gait Atrophy of muscle of both hands Weakness Paresthesia Assessment & Plan Assessment & Plan narrative: 74F with ALS and OA presents after mechanical fall and superficial head injury not requiring repair. 1. Mechanical fall without syncope with acute small subdural hematoma and occipital hematoma not requiring repair, POA 2. Acute subdural hematoma due to 1. Monitor serial neurologic exams in ICU setting. Repeat head CT tomorrow morning, sooner if needed. 3. Acute hypoxic respiratory failure, likely due to severe asthma. 4. Generalized weakness, POA 5. Mild hyponatremia, POA 6. Mild transaminitis, POA 7. ALS 8. Osteoarthritis L-spine 9. HTN 10. Hyperlipidemia 11. Hypothyroidism 12. GERD Plan: 1. Admit to ICU, telemetry 2. Serial neurologic exams. 3. Repeat head CT in the morning, sooner if neurologic deterioration 4. Check urinalysis to rule out infectious causes of weakness 5. Supplemental oxygen, frequently administered bronchodilators, follow clinically 6. PT/OT evaluation when stable 7. Fall precautions 8. Cardiac diet 9. Local wound care to occiput 10. Labs in AM - BMP, CBC, Mg 11. Resume home meds once verified Code: Full [employer] Document charge(s): No Charge Codes Subsequent inpatient/observation care: [id number]
--- NOTE | 2025-07-11 14:27 | PC.NURSE ---
patient unable to thoroughly participate in neuro exam due to weakness and inability to consistently follow commands
--- NOTE | 2025-07-11 15:00 | PC.ADMIT ---
[email or web address] Admission Note: Pt arrived via stretcher from ED to room 231 at approximately 1415. A&Ox4, soft-spoken. Upon lowering head, pt experienced audible stridor, oxygen dropped to 85% on 4L NC. Pt assisted to side-lying position, stridor dissipated, oxygen back up to 93%. Per patient and spouse, Domingo, pt unable to lay flat due to progression of neurological disorder. Pt unable to void in bedpan, bladder scan >500mL. Provider Dr. Pisano notified, new orders received. Indwelling urinary catheter placed for acute urinary retention. Care ongoing. The patient,Etta Cartagena,74 y/o, was given written information regarding hospital policies, unit procedures and contact persons. Patient's smoking status: . Vital Signs - 8 hr 07/11/25 07:02 07/11/25 07:02 07/11/25 07:04 Pulse Rate 104 H 103 H Respiratory Rate 19 12 Blood Pressure 111/54 L Pulse Oximetry 98 97 Oxygen Delivery Method Oxygen Flow Rate 07/11/25 07:06 07/11/25 07:08 07/11/25 07:10 Pulse Rate 103 H 106 H 106 H Respiratory Rate 13 16 13 Blood Pressure Pulse Oximetry 97 97 97 Oxygen Delivery Method Oxygen Flow Rate 07/11/25 07:12 07/11/25 07:14 07/11/25 07:15 Pulse Rate 97 H 98 H Respiratory Rate 13 11 L Blood Pressure 118/54 L Pulse Oximetry 97 97 Oxygen Delivery Method Oxygen Flow Rate 07/11/25 07:15 07/11/25 07:16 07/11/25 07:18 Pulse Rate 104 H 102 H 107 H Respiratory Rate 12 12 13 Blood Pressure Pulse Oximetry 97 98 97 Oxygen Delivery Method Oxygen Flow Rate 07/11/25 07:20 07/11/25 07:22 07/11/25 07:24 Pulse Rate 106 H 108 H 110 H Respiratory Rate 12 14 19 Blood Pressure Pulse Oximetry 97 97 97 Oxygen Delivery Method Oxygen Flow Rate 07/11/25 07:26 07/11/25 07:28 07/11/25 07:30 Pulse Rate 114 H 115 H Respiratory Rate 16 13 Blood Pressure 132/58 L Pulse Oximetry 97 97 Oxygen Delivery Method Oxygen Flow Rate 07/11/25 07:30 07/11/25 07:32 07/11/25 07:34 Pulse Rate 116 H 114 H 110 H Respiratory Rate 14 17 12 Blood Pressure Pulse Oximetry 97 97 97 Oxygen Delivery Method Oxygen Flow Rate 07/11/25 07:36 07/11/25 07:38 07/11/25 07:40 Pulse Rate 106 H 103 H 101 H Respiratory Rate 12 12 10 L Blood Pressure Pulse Oximetry 97 98 98 Oxygen Delivery Method Oxygen Flow Rate 07/11/25 07:42 07/11/25 07:44 07/11/25 07:45 Pulse Rate 100 H 98 H Respiratory Rate 12 10 L Blood Pressure 118/56 L Pulse Oximetry 98 98 Oxygen Delivery Method Oxygen Flow Rate 07/11/25 07:45 07/11/25 07:46 07/11/25 07:48 Pulse Rate 97 H 96 H 95 H Respiratory Rate 11 L 10 L 10 L Blood Pressure Pulse Oximetry 99 98 98 Oxygen Delivery Method Oxygen Flow Rate 07/11/25 07:50 07/11/25 07:52 07/11/25 07:54 Pulse Rate 97 H 105 H 105 H Respiratory Rate 12 11 L 14 Blood Pressure Pulse Oximetry 98 98 98 Oxygen Delivery Method Oxygen Flow Rate 07/11/25 07:56 07/11/25 07:58 07/11/25 08:00 Pulse Rate 123 H 133 H Respiratory Rate 36 H 46 H Blood Pressure 165/80 H Pulse Oximetry 98 93 Oxygen Delivery Method Oxygen Flow Rate 07/11/25 08:00 07/11/25 08:02 07/11/25 08:04 Pulse Rate 128 H 118 H 123 H Respiratory Rate 17 18 29 H Blood Pressure Pulse Oximetry 94 96 96 Oxygen Delivery Method Oxygen Flow Rate 07/11/25 08:06 07/11/25 08:08 07/11/25 08:10 Pulse Rate 119 H 110 H 114 H Respiratory Rate 18 17 22 Blood Pressure Pulse Oximetry 96 96 97 Oxygen Delivery Method Oxygen Flow Rate 07/11/25 08:12 07/11/25 08:14 07/11/25 08:15 Pulse Rate 119 H 127 H 128 H Respiratory Rate 17 35 H 20 Blood Pressure Pulse Oximetry 96 95 93 Oxygen Delivery Method Oxygen Flow Rate 07/11/25 08:15 07/11/25 08:16 07/11/25 08:18 Pulse Rate 123 H 123 H Respiratory Rate 23 23 Blood Pressure 173/79 H Pulse Oximetry 95 91 Oxygen Delivery Method Oxygen Flow Rate 07/11/25 08:20 07/11/25 08:22 07/11/25 08:24 Pulse Rate 124 H 117 H 115 H Respiratory Rate 24 17 21 Blood Pressure Pulse Oximetry 95 95 96 Oxygen Delivery Method Oxygen Flow Rate 07/11/25 08:26 07/11/25 08:28 07/11/25 08:30 Pulse Rate 108 H 112 H Respiratory Rate 17 16 Blood Pressure 150/61 H Pulse Oximetry 97 97 Oxygen Delivery Method Oxygen Flow Rate 07/11/25 08:30 07/11/25 08:32 07/11/25 08:34 Pulse Rate 107 H 101 H 99 H Respiratory Rate 18 15 16 Blood Pressure Pulse Oximetry 97 97 97 Oxygen Delivery Method Oxygen Flow Rate 07/11/25 08:36 07/11/25 08:38 07/11/25 08:40 Pulse Rate 104 H 105 H 107 H Respiratory Rate 18 22 18 Blood Pressure Pulse Oximetry 97 97 96 Oxygen Delivery Method Oxygen Flow Rate 07/11/25 08:42 07/11/25 08:44 07/11/25 08:45 Pulse Rate 102 H 101 H Respiratory Rate 21 17 Blood Pressure 147/67 H Pulse Oximetry 97 97 Oxygen Delivery Method Oxygen Flow Rate 07/11/25 08:45 07/11/25 08:46 07/11/25 08:48 Pulse Rate 101 H 101 H 98 H Respiratory Rate 16 18 20 Blood Pressure Pulse Oximetry 96 97 97 Oxygen Delivery Method Oxygen Flow Rate 07/11/25 08:50 07/11/25 08:52 07/11/25 08:54 Pulse Rate 97 H 96 H 95 H Respiratory Rate 18 18 20 Blood Pressure Pulse Oximetry 97 98 98 Oxygen Delivery Method Oxygen Flow Rate 07/11/25 08:56 07/11/25 08:58 07/11/25 09:00 Pulse Rate 98 H 96 H Respiratory Rate 17 14 Blood Pressure 148/69 H Pulse Oximetry 97 98 Oxygen Delivery Method Oxygen Flow Rate 07/11/25 09:00 07/11/25 09:02 07/11/25 09:04 Pulse Rate 95 H 96 H 99 H Respiratory Rate 15 17 17 Blood Pressure Pulse Oximetry 98 97 97 Oxygen Delivery Method Oxygen Flow Rate 07/11/25 09:06 07/11/25 09:08 07/11/25 09:10 Pulse Rate 99 H 99 H 99 H Respiratory Rate 16 14 17 Blood Pressure Pulse Oximetry 96 97 98 Oxygen Delivery Method Oxygen Flow Rate 07/11/25 09:12 07/11/25 09:14 07/11/25 09:15 Pulse Rate 101 H 105 H Respiratory Rate 15 21 Blood Pressure 149/65 H Pulse Oximetry 97 97 Oxygen Delivery Method Oxygen Flow Rate 07/11/25 09:15 07/11/25 09:16 07/11/25 09:18 Pulse Rate 106 H 104 H 102 H Respiratory Rate 20 17 20 Blood Pressure Pulse Oximetry 97 97 98 Oxygen Delivery Method Oxygen Flow Rate 07/11/25 09:20 07/11/25 09:22 07/11/25 09:22 Pulse Rate 101 H 102 H Respiratory Rate 17 15 Blood Pressure 142/65 H Pulse Oximetry 98 98 Oxygen Delivery Method Oxygen Flow Rate 07/11/25 09:24 07/11/25 09:25 07/11/25 09:25 Pulse Rate 107 H 109 H Respiratory Rate 24 24 Blood Pressure 125/59 L Pulse Oximetry 97 97 Oxygen Delivery Method Oxygen Flow Rate 07/11/25 09:26 07/11/25 09:27 07/11/25 09:27 Pulse Rate 108 H 103 H Respiratory Rate 29 H 28 H Blood Pressure 115/53 L Pulse Oximetry 97 97 Oxygen Delivery Method Oxygen Flow Rate 07/11/25 09:28 07/11/25 09:30 07/11/25 09:30 Pulse Rate 96 H 114 H Respiratory Rate 25 H Blood Pressure 127/60 Pulse Oximetry 97 97 Oxygen Delivery Method Oxygen Flow Rate 07/11/25 09:32 07/11/25 09:34 07/11/25 09:34 Pulse Rate 108 H 108 H Respiratory Rate 19 Blood Pressure 132/62 Pulse Oximetry 95 95 Oxygen Delivery Method Oxygen Flow Rate 07/11/25 09:36 07/11/25 09:38 07/11/25 09:40 Pulse Rate 105 H 100 H 98 H Respiratory Rate 18 17 16 Blood Pressure Pulse Oximetry 95 95 95 Oxygen Delivery Method Oxygen Flow Rate 07/11/25 09:42 07/11/25 09:44 07/11/25 09:45 Pulse Rate 97 H 95 H Respiratory Rate 14 16 Blood Pressure 119/57 L Pulse Oximetry 97 97 Oxygen Delivery Method Oxygen Flow Rate 07/11/25 09:45 07/11/25 09:46 07/11/25 09:48 Pulse Rate 94 H 94 H 100 H Respiratory Rate 15 14 19 Blood Pressure Pulse Oximetry 96 96 96 Oxygen Delivery Method Oxygen Flow Rate 07/11/25 09:50 07/11/25 09:52 07/11/25 09:54 Pulse Rate 94 H 94 H 94 H Respiratory Rate 16 20 20 Blood Pressure Pulse Oximetry 96 97 96 Oxygen Delivery Method Oxygen Flow Rate 07/11/25 09:56 07/11/25 09:58 07/11/25 10:00 Pulse Rate 93 H 95 H Respiratory Rate 18 18 Blood Pressure 126/61 Pulse Oximetry 96 98 Oxygen Delivery Method Oxygen Flow Rate 07/11/25 10:00 07/11/25 10:02 07/11/25 10:04 Pulse Rate 101 H 106 H 110 H Respiratory Rate 20 24 26 H Blood Pressure Pulse Oximetry 97 97 95 Oxygen Delivery Method Oxygen Flow Rate 07/11/25 10:06 07/11/25 10:08 07/11/25 10:10 Pulse Rate 109 H 102 H 99 H Respiratory Rate 24 15 17 Blood Pressure Pulse Oximetry 94 95 95 Oxygen Delivery Method Oxygen Flow Rate 07/11/25 10:12 07/11/25 10:14 07/11/25 10:15 Pulse Rate 99 H 100 H Respiratory Rate 16 17 Blood Pressure 144/66 H Pulse Oximetry 95 95 Oxygen Delivery Method Oxygen Flow Rate 07/11/25 10:15 07/11/25 10:16 07/11/25 10:18 Pulse Rate 100 H 103 H 103 H Respiratory Rate 17 20 22 Blood Pressure Pulse Oximetry 94 94 96 Oxygen Delivery Method Oxygen Flow Rate 07/11/25 10:20 07/11/25 10:22 07/11/25 10:24 Pulse Rate 102 H 99 H 102 H Respiratory Rate 21 21 19 Blood Pressure Pulse Oximetry 96 95 95 Oxygen Delivery Method Oxygen Flow Rate 07/11/25 10:26 07/11/25 10:28 07/11/25 10:30 Pulse Rate 101 H 99 H Respiratory Rate 17 17 Blood Pressure 130/59 L Pulse Oximetry 93 96 Oxygen Delivery Method Oxygen Flow Rate 07/11/25 10:30 07/11/25 10:32 07/11/25 10:34 Pulse Rate 94 H 100 H 101 H Respiratory Rate 15 17 22 Blood Pressure Pulse Oximetry 95 97 97 Oxygen Delivery Method Oxygen Flow Rate 07/11/25 10:36 07/11/25 10:38 07/11/25 10:40 Pulse Rate 110 H 109 H 112 H Respiratory Rate 24 18 25 H Blood Pressure Pulse Oximetry 96 95 95 Oxygen Delivery Method Oxygen Flow Rate 07/11/25 10:42 07/11/25 10:44 07/11/25 10:45 Pulse Rate 112 H 114 H Respiratory Rate 26 H 25 H Blood Pressure 135/59 L Pulse Oximetry 95 94 Oxygen Delivery Method Oxygen Flow Rate 07/11/25 10:45 07/11/25 10:46 07/11/25 10:48 Pulse Rate 109 H 102 H 100 H Respiratory Rate 18 17 17 Blood Pressure Pulse Oximetry 95 95 94 Oxygen Delivery Method Oxygen Flow Rate 07/11/25 10:50 07/11/25 10:52 07/11/25 10:54 Pulse Rate 105 H 107 H 104 H Respiratory Rate 18 19 21 Blood Pressure Pulse Oximetry 95 95 95 Oxygen Delivery Method Oxygen Flow Rate 07/11/25 10:56 07/11/25 10:58 07/11/25 11:00 Pulse Rate 106 H 108 H Respiratory Rate 19 21 Blood Pressure 172/79 H Pulse Oximetry 94 94 Oxygen Delivery Method Oxygen Flow Rate 07/11/25 11:00 07/11/25 11:02 07/11/25 11:04 Pulse Rate 119 H 123 H 123 H Respiratory Rate 20 25 H 27 H Blood Pressure Pulse Oximetry 92 92 92 Oxygen Delivery Method Oxygen Flow Rate 07/11/25 11:06 07/11/25 11:08 07/11/25 11:10 Pulse Rate 120 H 122 H 119 H Respiratory Rate 21 19 21 Blood Pressure Pulse Oximetry 90 L 92 93 Oxygen Delivery Method Oxygen Flow Rate 07/11/25 11:12 07/11/25 11:14 07/11/25 11:15 Pulse Rate 118 H 118 H Respiratory Rate 18 20 Blood Pressure 171/83 H Pulse Oximetry 93 94 Oxygen Delivery Method Oxygen Flow Rate 07/11/25 11:15 07/11/25 11:16 07/11/25 11:16 Pulse Rate 118 H 107 H 117 H Respiratory Rate 19 18 18 Blood Pressure Pulse Oximetry 94 94 95 Oxygen Delivery Method Nasal Cannula Oxygen Flow Rate 2 07/11/25 11:18 07/11/25 11:20 07/11/25 11:22 Pulse Rate 117 H 111 H 107 H Respiratory Rate 19 17 17 Blood Pressure Pulse Oximetry 92 93 94 Oxygen Delivery Method Oxygen Flow Rate 07/11/25 11:24 07/11/25 11:26 07/11/25 11:28 Pulse Rate 110 H 119 H 120 H Respiratory Rate 18 26 H 26 H Blood Pressure Pulse Oximetry 94 94 94 Oxygen Delivery Method Oxygen Flow Rate 07/11/25 11:30 07/11/25 11:30 07/11/25 11:32 Pulse Rate 119 H 119 H Respiratory Rate 19 19 Blood Pressure 160/77 H Pulse Oximetry 93 92 Oxygen Delivery Method Oxygen Flow Rate 07/11/25 11:34 07/11/25 11:36 07/11/25 11:38 Pulse Rate 120 H 117 H 117 H Respiratory Rate 19 19 19 Blood Pressure Pulse Oximetry 92 91 92 Oxygen Delivery Method Oxygen Flow Rate 07/11/25 11:40 07/11/25 11:42 07/11/25 11:44 Pulse Rate 118 H 118 H 119 H Respiratory Rate 18 21 25 H Blood Pressure Pulse Oximetry 93 92 91 Oxygen Delivery Method Oxygen Flow Rate 07/11/25 11:45 07/11/25 11:45 07/11/25 11:46 Pulse Rate 122 H 119 H Respiratory Rate 24 21 Blood Pressure 184/86 H Pulse Oximetry 89 L 90 L Oxygen Delivery Method Oxygen Flow Rate 07/11/25 11:48 07/11/25 11:50 07/11/25 11:52 Pulse Rate 120 H 118 H 111 H Respiratory Rate 20 18 17 Blood Pressure Pulse Oximetry 91 91 91 Oxygen Delivery Method Oxygen Flow Rate 07/11/25 11:53 07/11/25 11:53 07/11/25 11:54 Pulse Rate 109 H 107 H Respiratory Rate 18 16 Blood Pressure 159/77 H Pulse Oximetry 90 L 85 L Oxygen Delivery Method Oxygen Flow Rate 07/11/25 11:56 07/11/25 11:58 07/11/25 12:00 Pulse Rate 100 H 98 H Respiratory Rate 15 17 Blood Pressure 138/64 Pulse Oximetry 92 94 Oxygen Delivery Method Oxygen Flow Rate 07/11/25 12:00 07/11/25 12:02 07/11/25 12:04 Pulse Rate 94 H 92 H 99 H Respiratory Rate 17 15 15 Blood Pressure Pulse Oximetry 95 94 94 Oxygen Delivery Method Oxygen Flow Rate 07/11/25 12:06 07/11/25 12:08 07/11/25 12:10 Pulse Rate 112 H 112 H 117 H Respiratory Rate 21 17 21 Blood Pressure Pulse Oximetry 82 L 94 94 Oxygen Delivery Method Oxygen Flow Rate 07/11/25 12:12 07/11/25 12:14 07/11/25 12:16 Pulse Rate 119 H 130 H Respiratory Rate 19 19 Blood Pressure 210/98 H Pulse Oximetry 91 91 Oxygen Delivery Method Oxygen Flow Rate 07/11/25 12:16 07/11/25 12:18 07/11/25 12:20 Pulse Rate 125 H 112 H 102 H Respiratory Rate 16 15 14 Blood Pressure Pulse Oximetry 92 97 97 Oxygen Delivery Method Oxygen Flow Rate 07/11/25 12:22 07/11/25 12:24 07/11/25 12:25 Pulse Rate 103 H 100 H 97 H Respiratory Rate 16 15 14 Blood Pressure Pulse Oximetry 98 97 97 Oxygen Delivery Method Oxygen Flow Rate 07/11/25 12:25 07/11/25 12:26 07/11/25 12:28 Pulse Rate 93 H 97 H Respiratory Rate 14 15 Blood Pressure 135/63 Pulse Oximetry 97 97 Oxygen Delivery Method Oxygen Flow Rate 07/11/25 12:30 07/11/25 12:30 07/11/25 12:32 Pulse Rate 93 H 89 Respiratory Rate 14 15 Blood Pressure 111/54 L Pulse Oximetry 97 97 Oxygen Delivery Method Oxygen Flow Rate 07/11/25 12:34 07/11/25 12:36 07/11/25 12:38 Pulse Rate 89 86 91 H Respiratory Rate 15 14 13 Blood Pressure Pulse Oximetry 98 98 98 Oxygen Delivery Method Oxygen Flow Rate 07/11/25 12:40 07/11/25 12:42 07/11/25 12:44 Pulse Rate 99 H 103 H 110 H Respiratory Rate 15 15 18 Blood Pressure Pulse Oximetry 99 95 95 Oxygen Delivery Method Oxygen Flow Rate 07/11/25 12:45 07/11/25 12:45 07/11/25 12:46 Pulse Rate 114 H 119 H Respiratory Rate 19 18 Blood Pressure 179/107 H Pulse Oximetry 90 L 89 L Oxygen Delivery Method Oxygen Flow Rate 07/11/25 12:48 07/11/25 12:50 07/11/25 12:52 Pulse Rate 119 H 128 H 128 H Respiratory Rate 17 19 17 Blood Pressure Pulse Oximetry 94 91 92 Oxygen Delivery Method Oxygen Flow Rate 07/11/25 12:54 07/11/25 12:56 07/11/25 12:58 Pulse Rate 112 H 103 H 110 H Respiratory Rate 15 15 17 Blood Pressure Pulse Oximetry 96 96 95 Oxygen Delivery Method Oxygen Flow Rate 07/11/25 13:00 07/11/25 13:01 07/11/25 13:01 Pulse Rate 129 H 132 H Respiratory Rate 19 19 Blood Pressure 196/93 H Pulse Oximetry 89 L 89 L Oxygen Delivery Method Oxygen Flow Rate 07/11/25 13:02 07/11/25 13:04 07/11/25 13:06 Pulse Rate 132 H 116 H 114 H Respiratory Rate 19 16 18 Blood Pressure Pulse Oximetry 87 L 97 97 Oxygen Delivery Method Oxygen Flow Rate 07/11/25 13:08 07/11/25 13:10 07/11/25 13:12 Pulse Rate 113 H 109 H 105 H Respiratory Rate 17 16 15 Blood Pressure Pulse Oximetry 96 96 96 Oxygen Delivery Method Nasal Cannula Oxygen Flow Rate 07/11/25 13:14 07/11/25 13:15 07/11/25 13:15 Pulse Rate 110 H 115 H Respiratory Rate 16 17 Blood Pressure 166/74 H Pulse Oximetry 95 96 Oxygen Delivery Method Oxygen Flow Rate 07/11/25 13:16 07/11/25 13:18 07/11/25 13:20 Pulse Rate 111 H 108 H 103 H Respiratory Rate 16 16 15 Blood Pressure Pulse Oximetry 96 97 96 Oxygen Delivery Method Nasal Cannula Oxygen Flow Rate 07/11/25 13:22 07/11/25 13:24 07/11/25 13:26 Pulse Rate 110 H 112 H 109 H Respiratory Rate 19 16 16 Blood Pressure Pulse Oximetry 95 96 96 Oxygen Delivery Method Oxygen Flow Rate 07/11/25 13:28 07/11/25 13:30 07/11/25 13:30 Pulse Rate 120 H 110 H Respiratory Rate 18 16 Blood Pressure 156/71 H Pulse Oximetry 95 96 Oxygen Delivery Method Oxygen Flow Rate 07/11/25 13:32 07/11/25 13:34 07/11/25 13:36 Pulse Rate 107 H 111 H 119 H Respiratory Rate 17 19 17 Blood Pressure Pulse Oximetry 96 95 96 Oxygen Delivery Method Oxygen Flow Rate 07/11/25 13:38 07/11/25 13:40 07/11/25 13:42 Pulse Rate 111 H 117 H 115 H Respiratory Rate 17 19 18 Blood Pressure Pulse Oximetry 96 96 96 Oxygen Delivery Method Oxygen Flow Rate 07/11/25 13:44 07/11/25 13:45 07/11/25 13:45 Pulse Rate 114 H 115 H Respiratory Rate 18 19 Blood Pressure 162/75 H Pulse Oximetry 95 95 Oxygen Delivery Method Oxygen Flow Rate 07/11/25 13:46 07/11/25 13:48 07/11/25 13:50 Pulse Rate 112 H 115 H 115 H Respiratory Rate 18 17 21 Blood Pressure Pulse Oximetry 95 96 96 Oxygen Delivery Method Oxygen Flow Rate 07/11/25 13:52 07/11/25 13:54 07/11/25 13:56 Pulse Rate 122 H 122 H 115 H Respiratory Rate 20 22 19 Blood Pressure Pulse Oximetry 96 96 97 Oxygen Delivery Method Oxygen Flow Rate 07/11/25 13:58 07/11/25 14:00 07/11/25 14:00 Pulse Rate 111 H 106 H Respiratory Rate 18 16 Blood Pressure 156/66 H Pulse Oximetry 98 97 Oxygen Delivery Method Oxygen Flow Rate 07/11/25 14:02 07/11/25 14:04 07/11/25 14:06 Pulse Rate 110 H 120 H 121 H Respiratory Rate 18 20 24 Blood Pressure Pulse Oximetry 96 97 97 Oxygen Delivery Method Oxygen Flow Rate
[2025-07-11 15:44] LABS: Appearance Urine UA CLEAR; Bilirubin Urine UA NEGATIVE (NEGATIVE); Color Urine UA YELLOW; Glucose Urine UA NEGATIVE (Negative); Ketones Urine UA TRACE (NEGATIVE); Leukocyte Esterase Urine UA NEGATIVE (NEGATIVE); Nitrite Urine UA NEGATIVE (Negative); Occult Blood Urine UA 1+ (Negative); Protein Urine UA NEGATIVE (Negative); Specific Gravity Urine UA 1.020 (1.000-1.035); Urobilinogen Urine UA 0.2 E.U./dL (0.2)
[2025-07-11 16:01] LABS: pH Urine UA 5.5 (4.5-8.0)
[2025-07-11 18:25] LABS: Add Manual Diff / Slide Review NO; Hematocrit 35.1 % (36-46); Hemoglobin 11.9 g/dL (12.0-16.0); Lymphocytes Absolute Auto 600 /uL (1100-4500); Mean Corpuscular HGB Conc 33.9 % (30-36); Mean Corpuscular Hemoglobin 31.9 PG (26-34); Mean Corpuscular Volume 94.3 fL (80-100); Platelet Count 193 X10^3/uL (150-400)
[2025-07-11 18:38] LABS: Blood Urea Nitrogen 16 mg/dL (7-17); Calcium 9.0 mg/dL (8.4-10.2); Carbon Dioxide 28 mmol/L (22-32); Chloride 96 mmol/L (98-107); Estimated Glomerular Filt Rate > 60 mL/min (>60); Glucose 141 mg/dL (70-99); HEMOLYSIS < 15 (0-50); Magnesium 1.9 mg/dL (1.6-2.3); Potassium 3.9 mmol/L (3.4-5.1); Sodium 130 mmol/L (137-145)
[2025-07-11] MEDS: PANTOPRAZOLE 40 MG VIAL IV (22:31)
[2025-07-12] VITALS (226 sets, daily range): BP systolic 78–168; BP diastolic 48–104; PULSE 74–143; RESP 0–46; TEMP 29; O2SAT 21–100
[2025-07-12] MEDS: ONDANSETRON 4 MG/2 ML INJ IV (02:33)
[2025-07-12] MEDS: ALBUTEROL/IPRATROPIUM 3 ML AMPUL INH (03:07)
--- NOTE | 2025-07-12 05:44 | DI.RAD.S_ITS ---
PROCEDURE: XR CHEST 1V INDICATIONS: nonresponsive TECHNIQUE: One view of the chest was acquired. COMPARISON: [facility], CR, XR CHEST 1V, 07/11/2025, 12:29. FINDINGS: Surgical changes and devices: None. Lungs and pleura: Bibasilar streaky opacities. No pleural effusions or pneumothorax. Mediastinum: Mediastinal contours appear normal. Heart size is normal. Bones and chest wall: No suspicious bony lesions. Overlying soft tissues appear unremarkable. IMPRESSION: Bibasilar streaky opacities favored to represent atelectasis. Approved by: Gertrudis Pool M.D.,Ph.D. on 07/12/2025 at 6:27
[2025-07-12 05:48] LABS: Add Manual Diff / Slide Review NO; Hematocrit 36.4 % (36-46); Hemoglobin 12.2 g/dL (12.0-16.0); Lymphocytes Absolute Auto 1100 /uL (1100-4500); Mean Corpuscular HGB Conc 33.6 % (30-36); Mean Corpuscular Hemoglobin 31.8 PG (26-34); Mean Corpuscular Volume 94.7 fL (80-100); Platelet Count 218 X10^3/uL (150-400)
[2025-07-12 05:58] LABS: Blood Urea Nitrogen 13 mg/dL (7-17); Calcium 8.7 mg/dL (8.4-10.2); Carbon Dioxide 31 mmol/L (22-32); Chloride 94 mmol/L (98-107); Estimated Glomerular Filt Rate > 60 mL/min (>60); Glucose 170 mg/dL (70-99); HEMOLYSIS < 15 (0-50); Magnesium 1.9 mg/dL (1.6-2.3); Potassium 3.7 mmol/L (3.4-5.1); Sodium 132 mmol/L (137-145)
--- NOTE | 2025-07-12 06:09 | PM.EVENT ---
Event Note Date Patient Seen: 07/12/25 Time Patient Seen: 06:09 Event Note (Rapid Response, Code, or fall): Was notified by patient's nursing staff that the patient was hypoxic and was turning blue. Rapid response was called and ER doc came to bedside to evaluate the patient immediately. The patient saturation was down in the 50-60s. Mentation was also decreased. However shortly after, the patient was placed on full face mask 10L. Oxygenation improves and patient also was following command. No CPR was required. EKG shows sinus tach but no acute sign of ischemia. Trop negative. Pending VBG. BP was stable. Will try bipap while awaiting VBG result. CXR repeated did show pneumothorax or any acute changes. Will monitor closely and will sign of out Dr. Ruby, Day time hospitalist. Note patient is a full code per charting.
[2025-07-12 06:16] LABS: Troponin I 0.151 ng/mL (0.01-0.034)
[2025-07-12 06:27] LABS: Base Excess VBG -4.1 mmol/L (0-4); HCO3 VBG 27 mmol/L (24-28); Oxygen Saturation VBG 80 % (70-75); PCO2 VBG 83.3 mmHg (45-50); PO2 VBG 61 mmHg (35-45); Total CO2 VBG 27 mmol/L (24-29); pH VBG 7.12 (7.33-7.43)
--- NOTE | 2025-07-12 06:55 | PC.NURSE ---
0520 nursing assist reported pt spo2 81% in room repositioned pt muliti times.
[2025-07-12 06:59] LABS: Base Excess VBG -2.4 mmol/L (0-4); HCO3 VBG 28 mmol/L (24-28); Oxygen Saturation VBG 62 % (70-75); PCO2 VBG 81.7 mmHg (45-50); PO2 VBG 43 mmHg (35-45); Total CO2 VBG 28 mmol/L (24-29); pH VBG 7.15 (7.33-7.43)
--- NOTE | 2025-07-12 07:01 | PC.NURSE ---
0520 nursing assisstant at bs witness pt desat, SET RIDER call rn to bs tried to repositioned pt muti times and different ways could not get pt to ventilate. call for more help started to bag pt spo2 50% code ronit called at 0525 see code sheet for continue care of pt. pt requried multiple reposition through out night as pt c/o hard to breathe.
--- NOTE | 2025-07-12 07:27 | DI.RAD.S_ITS ---
PROCEDURE: XR CHEST 1V INDICATIONS: ET tube placement TECHNIQUE: One view of the chest was acquired. COMPARISON: [facility], CR, XR CHEST 1V, 07/12/2025, 5:25. [facility], CR, XR CHEST 1V, 07/11/2025, 12:29. FINDINGS: Surgical changes and devices: Interval intubation with endotracheal tube tip overlying the mid intrathoracic trachea. Interval placement of an enteric tube with side port located at the GE junction and tip overlying the gastric body. Lungs and pleura: Unchanged left infrahilar airspace opacities. No pleural effusion. No pneumothorax. Mediastinum: Mediastinal contours appear normal. Heart size is normal. Bones and chest wall: No suspicious bony lesions. Overlying soft tissues appear unremarkable. IMPRESSION: Interval intubation with appropriate position of endotracheal tube tip. Subdiaphragmatic enteric tube with side port located at the GE junction, recommend advancement and repositioning. Unchanged left infrahilar opacities, concerning for possible aspiration. Dictated by: Jamie Glover M.D. on 07/12/2025 at 7:59 Approved by: Jamie Glover M.D. on 07/12/2025 at 8:01
--- NOTE | 2025-07-12 07:37 | P.PCN_ITS ---
Procedures Date/Time Date of procedure: 07/12/25 Time of procedure: 07:24 Intubation Time out performed: No (called for emergent) Sedative: etomidate Paralytic: rocuronium Laryngoscope: other (glide scope #3) ET tube size: 7 ET tube uncuffed: No Tube secured depth (cm): 19 (at teeth) Tube secured location: teeth Tube placement confirmation: visualized tube passing through cords, equal breath sounds bilaterally, no breath sounds over epigastrium and confirmation by capnometry Patient tolerated procedure: well Intubation complications: none Additional comments: called by ED doc at 0714 for airway backup due to pt having ALS, no other report given. upon arrival to ICU airway team at bedside, pt being bagged by RT x2 and ED doc at head of [facility]. ED doc requested anesthesia intubate. meds were already given therefore I am unsure of doses. V/S/S upon arrival. cycled BP cuff SBP 103. after maura pushed by airway team, gently closed eyelids, scissor mouth open and introduced glidescope into oropharynx. grade i view. able to pass ett through vocal cords without complications, stylette removed prior to passing cords with tube. tube held at 19 cm at teeth. b/s audible b. capnometry change.
--- NOTE | 2025-07-12 07:39 | DI.CT.S_ITS ---
PROCEDURE: CT HEAD/BRAIN WO CON INDICATIONS: sdh TECHNIQUE: Noncontrast 4.5 mm thick angled axial sections acquired from the foramen magnum to the vertex, with coronal and sagittal reformats. For radiation dose reduction, the following was used: automated exposure control, adjustment of mA and/or kV according to patient size. COMPARISON: [facility], CT, CT HEAD/BRAIN WO CON, 07/11/2025, 8:44. FINDINGS: Image quality: Diagnostic. CSF spaces: Basal cisterns are patent. Minimal residual thickening of the medial left tentorial leaflet measuring up to 2 mm. The ventricles are symmetric in size and shape. Brain: No new acute intracranial hemorrhage or mass effect. There is cerebral volume loss, with resultant ventricular and sulcal prominence. There are periventricular and deep white matter chronic small vessel ischemic changes. There is intracranial internal carotid artery atherosclerosis. Skull and face: Calvarium and visualized facial bones appear intact, without suspicious lesions. Sinuses: Visualized sinuses and mastoids are clear. IMPRESSION: Minimal thickening of the medial left tentorial leaflet likely represents residual subdural hematoma and is less pronounced than prior. Dictated by: Johnnie Herrera M.D. on 07/12/2025 at 10:44 Approved by: Johnnie Herrera M.D. on 07/12/2025 at 10:46
--- NOTE | 2025-07-12 07:42 | PT-OP ANOTE ---
Talked to RN and pt not appropriate for PT today. Check back tomorrow.
--- NOTE | 2025-07-12 08:06 | PM.DS.1 ---
History of Present Illness History of Present Illness Date Patient Seen: 07/12/25 Chief complaint: Acute hypercapnic hypoventilation respiratory fail Narrative: Chief complaint: Ground level fall with small subdural hematoma new diagnosis ALS with loss of upper airway hypercapnic hypoventilatory respiratory failure History of present illness: 74F with PMH of HTN, hyperlipidemia, hypothyroidism, GERD, asthma not on oxygen who walks with a walker due to osteoarthritis and ALS presented to ED after a mechanical fall resulting in hitting of head without syncope, chest pain, dyspnea, incontinence, or spinal pain. She developed a hematoma on the occiput. Imaging reports are not released yet but per ED physician, the preliminary reads showed no acute process on CT head, CT C-spine, CXR, and CT L-spine. Labs were only notable for mild hyponatremia of 131 and minimally elevated transaminases. She was found to be mildly hypoxic requiring 2L oxygen. She also required sedation because of chronic back pain from trying to lie flat supine for CT. Hospital course: 07/11: The patient's initial head CT was read as showing no acute process, though subsequently reported a 2-3 mm trace left subdural hematoma along the left tentorium cerebella. A repeat head CT was obtained showing a stable subdural hematoma. She became hypoxic with oxygen saturations diminished into the 80s % range, responding to supplemental oxygen and bronchodilators, noting history of severe asthma in the past. The patient became very anxious and tachycardic and hypertensive, responding to lorazepam. She is seen with her Domingo at bedside. 07/12: 06:09 Event Note (Rapid Response, Code, or fall): Was notified by patient's nursing staff that the patient was hypoxic and was turning blue. Rapid response was called and ER doc came to bedside to evaluate the patient immediately. The patient saturation was down in the 50-60s. Mentation was also decreased. However shortly after, the patient was placed on full face mask 10L. Oxygenation improves and patient also was following command. No CPR was required. EKG shows sinus tach but no acute sign of ischemia. Trop negative. Pending VBG. BP was stable. Will try bipap while awaiting VBG result. CXR repeated did show pneumothorax or any acute changes. Will monitor closely and will sign of out Dr. Ruby, Day time hospitalist. Note patient is a full code per charting. Per nursing report patient has been unable to maintain her airway except in the seated upright position due to laxity of upper airway musculature Patient developed hypercapnic respiratory failure venous blood gas demonstrated: 7.15/82/43. Immediate discussion with on acute direction of care who elected for intubation patient placed on mechanical ventilation restraints for self protection and propofol anesthetic to RA SS of -1 and E ICU consulted decision made for transfer to higher level of care for evaluation by waiter/waitress club, neurologist, fleet manager/dispatch, airline security representative for patient's loss of upper airway management likely due to exacerbation of ALS with acute hypoxic and hypercapnic respiratory failure. Patient is full code and per patient desires full intervention attempts Review of systems: Patient unable to give due to loss of consciousness Physical exam: Intubated unresponsive patient Heart rate and rhythm regular Lungs with ventilator noises Abdomen nondistended scant bowel sounds 2+ pitting edema of lower extremities Moves all extremities prior to intubation For the objective laboratory and imaging please see the bottom of the note: Assessment and plan: 74F with ALS and OA presents after mechanical fall and superficial head injury not requiring repair. 1. Mechanical fall without syncope with acute small subdural hematoma and occipital hematoma not requiring repair, POA 2. Acute subdural hematoma due to 1. Monitor serial neurologic exams in ICU setting. Repeat head CT tomorrow pending this morning, . 3. Acute hypoxic hypercapnic respiratory failure, likely due to loss of upper airway tone, suspect exacerbation ALS severe asthma. 4. Generalized weakness, POA 5. Mild hyponatremia, POA 6. Mild transaminitis, POA 7. ALS 8. Osteoarthritis L-spine 9. HTN 10. Hyperlipidemia 11. Hypothyroidism 12. GERD Plan: 1. Transfer to higher level of care with services of pulmonology waiter/waitress club, Neurology, otolaryngology for airway options DVT prophylaxis: SCDs only due to subdural hematoma Code status: Full Disposition: Transfer to higher level of care as mentioned above 74 minutes were involved in the management of this patient including [id number] evaluation patient physical examination code management of acute respiratory arrest discussion with disposition and prognosis review of the chart discussion with nursing care team code team and Anesthesiology Discharge Providers Provider Date of admission: 07/11/25 05:42 Discharge Date: 07/12/25 Primary care physician: Poppy Ng MD Consults: 07/11/25 16:01 Consult to Pharmacy Routine Comment: weight loss 07/11/25 16:04 Consult to Occupational Therapy Evaluate & Treat Comment: Physician Instructions: Evaluate and treat Consult to Physical Therapy Evaluate & Treat Comment: Physician Instructions: Evaluate and Treat 07/11/25 18:24 Consult to Speech Therapy Evaluate & Treat Comment: Difficulty swallowing Physician Instructions: Evaluate and treat 07/11/25 21:11 Consult to Pharmacy Routine Comment: pt npo Discharge provider: Ervin Ruby MD Exam Vital Signs (past 8 hours): - 07/12/25 01:46 07/12/25 01:48 07/12/25 01:50 Pulse Rate 113 H 106 H 100 H Respiratory Rate 24 20 16 Blood Pressure Pulse Oximetry 98 100 99 Oxygen Delivery Method Oxygen Flow Rate Fraction of Inspired Oxygen 07/12/25 01:52 07/12/25 01:54 07/12/25 01:56 Pulse Rate 96 H 97 H 100 H Respiratory Rate 19 15 15 Blood Pressure Pulse Oximetry 99 100 99 Oxygen Delivery Method Oxygen Flow Rate Fraction of Inspired Oxygen 07/12/25 01:58 07/12/25 02:00 07/12/25 02:00 Pulse Rate 100 H 101 H Respiratory Rate 17 16 Blood Pressure 151/67 H Pulse Oximetry 99 97 Oxygen Delivery Method Oxygen Flow Rate Fraction of Inspired Oxygen 07/12/25 02:02 07/12/25 02:04 07/12/25 02:06 Pulse Rate 106 H 103 H 106 H Respiratory Rate 20 14 18 Blood Pressure Pulse Oximetry 98 97 98 Oxygen Delivery Method Oxygen Flow Rate Fraction of Inspired Oxygen 07/12/25 02:08 07/12/25 02:10 07/12/25 02:12 Pulse Rate 107 H 109 H 102 H Respiratory Rate 17 23 22 Blood Pressure Pulse Oximetry 100 99 98 Oxygen Delivery Method Oxygen Flow Rate Fraction of Inspired Oxygen 07/12/25 02:14 07/12/25 02:16 07/12/25 02:18 Pulse Rate 100 H 103 H 110 H Respiratory Rate 20 18 17 Blood Pressure Pulse Oximetry 98 98 98 Oxygen Delivery Method Oxygen Flow Rate Fraction of Inspired Oxygen 07/12/25 02:20 07/12/25 02:22 07/12/25 02:24 Pulse Rate 109 H 112 H 110 H Respiratory Rate 23 21 16 Blood Pressure Pulse Oximetry 98 99 99 Oxygen Delivery Method Oxygen Flow Rate Fraction of Inspired Oxygen 07/12/25 02:26 07/12/25 02:28 07/12/25 02:30 Pulse Rate 111 H 106 H 108 H Respiratory Rate 17 14 20 Blood Pressure Pulse Oximetry 99 99 99 Oxygen Delivery Method Oxygen Flow Rate Fraction of Inspired Oxygen 07/12/25 02:32 07/12/25 02:34 07/12/25 02:36 Pulse Rate 110 H 112 H 109 H Respiratory Rate 20 18 19 Blood Pressure Pulse Oximetry 98 98 99 Oxygen Delivery Method Oxygen Flow Rate Fraction of Inspired Oxygen 07/12/25 02:38 07/12/25 02:40 07/12/25 02:42 Pulse Rate 107 H 116 H 120 H Respiratory Rate 18 17 24 Blood Pressure Pulse Oximetry 98 98 98 Oxygen Delivery Method Oxygen Flow Rate Fraction of Inspired Oxygen 07/12/25 02:44 07/12/25 02:46 07/12/25 02:48 Pulse Rate 119 H 118 H 119 H Respiratory Rate 18 25 H 29 H Blood Pressure Pulse Oximetry 94 98 98 Oxygen Delivery Method Oxygen Flow Rate Fraction of Inspired Oxygen 07/12/25 02:50 07/12/25 02:52 07/12/25 02:54 Pulse Rate 123 H 128 H 127 H Respiratory Rate 23 16 24 Blood Pressure Pulse Oximetry 98 97 97 Oxygen Delivery Method Oxygen Flow Rate Fraction of Inspired Oxygen 07/12/25 02:56 07/12/25 02:58 07/12/25 03:00 Pulse Rate 130 H 132 H 133 H Respiratory Rate 23 23 32 H Blood Pressure Pulse Oximetry 98 98 95 Oxygen Delivery Method Oxygen Flow Rate Fraction of Inspired Oxygen 07/12/25 03:02 07/12/25 03:04 07/12/25 03:05 Pulse Rate 142 H 127 H 105 H Respiratory Rate 29 H 14 24 Blood Pressure Pulse Oximetry 96 97 97 Oxygen Delivery Method Oximask Oxygen Flow Rate 6 Fraction of Inspired Oxygen 07/12/25 03:06 07/12/25 03:08 07/12/25 03:10 Pulse Rate 116 H 111 H 114 H Respiratory Rate 12 10 L 14 Blood Pressure Pulse Oximetry 98 98 98 Oxygen Delivery Method Oxygen Flow Rate Fraction of Inspired Oxygen 07/12/25 03:12 07/12/25 03:14 07/12/25 03:16 Pulse Rate 114 H 113 H 117 H Respiratory Rate 10 L 11 L 17 Blood Pressure Pulse Oximetry 98 98 98 Oxygen Delivery Method Oxygen Flow Rate Fraction of Inspired Oxygen 07/12/25 03:18 07/12/25 03:20 07/12/25 03:22 Pulse Rate 120 H 125 H 124 H Respiratory Rate 15 17 17 Blood Pressure Pulse Oximetry 98 98 98 Oxygen Delivery Method Oxygen Flow Rate Fraction of Inspired Oxygen 07/12/25 03:24 07/12/25 03:26 07/12/25 03:28 Pulse Rate 126 H 120 H 118 H Respiratory Rate 11 L 12 11 L Blood Pressure Pulse Oximetry 97 96 95 Oxygen Delivery Method Oxygen Flow Rate Fraction of Inspired Oxygen 07/12/25 03:30 07/12/25 03:32 07/12/25 03:34 Pulse Rate 115 H 112 H 111 H Respiratory Rate 10 L 10 L 11 L Blood Pressure Pulse Oximetry 95 94 93 Oxygen Delivery Method Oxygen Flow Rate Fraction of Inspired Oxygen 07/12/25 03:36 07/12/25 03:38 07/12/25 03:40 Pulse Rate 111 H 109 H 107 H Respiratory Rate 10 L 9 L 10 L Blood Pressure Pulse Oximetry 94 94 95 Oxygen Delivery Method Oxygen Flow Rate Fraction of Inspired Oxygen 07/12/25 03:42 07/12/25 03:44 07/12/25 03:46 Pulse Rate 105 H 104 H 102 H Respiratory Rate 9 L 10 L 11 L Blood Pressure Pulse Oximetry 95 95 95 Oxygen Delivery Method Oxygen Flow Rate Fraction of Inspired Oxygen 07/12/25 03:48 07/12/25 03:50 07/12/25 03:52 Pulse Rate 103 H 103 H 101 H Respiratory Rate 10 L 11 L 9 L Blood Pressure Pulse Oximetry 95 95 96 Oxygen Delivery Method Oxygen Flow Rate Fraction of Inspired Oxygen 07/12/25 03:54 07/12/25 03:56 07/12/25 03:58 Pulse Rate 101 H 100 H 99 H Respiratory Rate 10 L 9 L 10 L Blood Pressure Pulse Oximetry 96 96 96 Oxygen Delivery Method Oxygen Flow Rate Fraction of Inspired Oxygen 07/12/25 04:00 07/12/25 04:00 07/12/25 04:02 Pulse Rate 99 H 99 H Respiratory Rate 10 L 11 L Blood Pressure 104/54 L Pulse Oximetry 95 96 Oxygen Delivery Method Oxygen Flow Rate Fraction of Inspired Oxygen 07/12/25 04:04 07/12/25 04:06 07/12/25 04:08 Pulse Rate 98 H 97 H 97 H Respiratory Rate 11 L 10 L 10 L Blood Pressure Pulse Oximetry 96 96 96 Oxygen Delivery Method Oxygen Flow Rate Fraction of Inspired Oxygen 07/12/25 04:10 07/12/25 04:12 07/12/25 05:32 Pulse Rate 96 H 95 H 120 H Respiratory Rate 9 L 9 L Blood Pressure Pulse Oximetry 96 96 98 Oxygen Delivery Method Oxygen Flow Rate Fraction of Inspired Oxygen 07/12/25 05:34 07/12/25 05:35 07/12/25 05:36 Pulse Rate 125 H 130 H 119 H Respiratory Rate 0 L Blood Pressure Pulse Oximetry 98 99 Oxygen Delivery Method Oxygen Flow Rate Fraction of Inspired Oxygen 07/12/25 05:38 07/12/25 05:40 07/12/25 05:42 Pulse Rate 113 H 110 H 102 H Respiratory Rate Blood Pressure Pulse Oximetry 99 98 97 Oxygen Delivery Method Oxygen Flow Rate Fraction of Inspired Oxygen 07/12/25 05:44 07/12/25 05:46 07/12/25 05:48 Pulse Rate 100 H 99 H 101 H Respiratory Rate Blood Pressure Pulse Oximetry 99 98 99 Oxygen Delivery Method Oxygen Flow Rate Fraction of Inspired Oxygen 07/12/25 05:48 07/12/25 05:50 07/12/25 05:50 Pulse Rate 102 H Respiratory Rate Blood Pressure 121/56 L 133/61 Pulse Oximetry 98 Oxygen Delivery Method Oxygen Flow Rate Fraction of Inspired Oxygen 07/12/25 05:52 07/12/25 05:54 07/12/25 05:55 Pulse Rate 101 H 102 H Respiratory Rate Blood Pressure 129/59 L Pulse Oximetry 98 99 Oxygen Delivery Method Oxygen Flow Rate Fraction of Inspired Oxygen 07/12/25 05:55 07/12/25 05:56 07/12/25 05:58 Pulse Rate 101 H 104 H 102 H Respiratory Rate Blood Pressure Pulse Oximetry 99 99 99 Oxygen Delivery Method Oxygen Flow Rate Fraction of Inspired Oxygen 07/12/25 06:00 07/12/25 06:00 07/12/25 06:02 Pulse Rate 109 H 104 H Respiratory Rate Blood Pressure 140/63 Pulse Oximetry 99 100 Oxygen Delivery Method Oxygen Flow Rate Fraction of Inspired Oxygen 07/12/25 06:04 07/12/25 06:06 07/12/25 06:08 Pulse Rate 122 H 111 H 105 H Respiratory Rate Blood Pressure Pulse Oximetry 99 98 99 Oxygen Delivery Method Oxygen Flow Rate Fraction of Inspired Oxygen 07/12/25 06:10 07/12/25 06:12 07/12/25 06:14 Pulse Rate 112 H 116 H Respiratory Rate Blood Pressure 166/81 H Pulse Oximetry 100 99 Oxygen Delivery Method Oxygen Flow Rate Fraction of Inspired Oxygen 07/12/25 06:14 07/12/25 06:15 07/12/25 06:15 Pulse Rate 139 H 124 H Respiratory Rate Blood Pressure 168/79 H Pulse Oximetry 97 98 Oxygen Delivery Method Oxygen Flow Rate Fraction of Inspired Oxygen 07/12/25 06:16 07/12/25 06:18 07/12/25 06:20 Pulse Rate 115 H 111 H 110 H Respiratory Rate 14 Blood Pressure Pulse Oximetry 98 98 98 Oxygen Delivery Method Oxygen Flow Rate Fraction of Inspired Oxygen 07/12/25 06:20 07/12/25 06:22 07/12/25 06:24 Pulse Rate 112 H 113 H Respiratory Rate 13 12 Blood Pressure 159/81 H Pulse Oximetry 97 97 Oxygen Delivery Method Oxygen Flow Rate Fraction of Inspired Oxygen 07/12/25 06:25 07/12/25 06:25 07/12/25 06:26 Pulse Rate 112 H 113 H Respiratory Rate 13 12 Blood Pressure 152/104 H Pulse Oximetry 96 97 Oxygen Delivery Method Oxygen Flow Rate Fraction of Inspired Oxygen 07/12/25 06:28 07/12/25 06:30 07/12/25 06:30 Pulse Rate 111 H 110 H Respiratory Rate 13 22 Blood Pressure 138/61 Pulse Oximetry 98 98 Oxygen Delivery Method Oxygen Flow Rate Fraction of Inspired Oxygen 07/12/25 06:32 07/12/25 06:34 07/12/25 06:35 Pulse Rate 108 H 109 H Respiratory Rate 20 19 Blood Pressure 133/63 Pulse Oximetry 97 97 Oxygen Delivery Method Oxygen Flow Rate Fraction of Inspired Oxygen 07/12/25 06:35 07/12/25 06:36 07/12/25 06:38 Pulse Rate 108 H 109 H 109 H Respiratory Rate 18 15 17 Blood Pressure Pulse Oximetry 97 97 97 Oxygen Delivery Method Oxygen Flow Rate Fraction of Inspired Oxygen 07/12/25 06:40 07/12/25 06:40 07/12/25 06:40 Pulse Rate 111 H Respiratory Rate 17 Blood Pressure 133/71 138/61 Pulse Oximetry 98 Oxygen Delivery Method Oxygen Flow Rate Fraction of Inspired Oxygen 0.50 Fraction of Inspired Oxygen 0.50 SaO2/FiO2 Ratio 342 Oxygen Delivery Method Oximask Oxygen Flow Rate 6 Objective Labs 07/12/25 05:35 07/12/25 05:35 Labs: Laboratory Results - last 24 hr 07/11/25 07/11/25 07/12/25 15:30 18:05 05:35 WBC 16.3 H D 21.4 H RBC 3.72 L 3.85 L Hgb 11.9 L 12.2 Hct 35.1 L 36.4 MCV 94.3 94.7 MCH 31.9 31.8 MCHC 33.9 33.6 RDW 13.4 13.3 Plt Count 193 218 Neut % (Auto) 92.6 H D 89.6 H Lymph % (Auto) 3.7 L D 5.0 L Mer[place] % (Auto) 2.8 L 4.9 Eos % (Auto) 0.0 L 0.0 L Baso % (Auto) 0.9 0.5 Neut # (Auto) 86721 H 67966 H Lymph # (Auto) 600 L 1100 Mercer # (Auto) 500 1000 H Eos # (Auto) 0 0 Baso # (Auto) 100 100 VBG pH VBG pCO2 VBG pO2 VBG HCO3 VBG Total CO2 VBG O2 Saturation VBG Base Excess FiO2 % Sodium 130 L 132 L Potassium 3.9 3.7 Chloride 96 L 94 L Carbon Dioxide 28 31 BUN 16 13 Creatinine 0.44 L 0.36 L Estimated GFR > 60 > 60 BUN/Creatinine Ratio 36.4 H 36.1 H Glucose 141 H 170 H Calcium 9.0 8.7 Magnesium 1.9 1.9 Troponin I 0.151 H* Urine Color Yellow Urine Appearance Clear Urine pH 5.5 Ur Specific [place] 1.020 Urine Protein Negative Urine Glucose (UA) Negative Urine Ketones Trace H Urine Occult Blood 1+ H Urine Nitrate Negative Urine Bilirubin Negative Urine Urobilinogen 0.2 Ur Leukocyte Esterase Negative Urine RBC 0-1/hpf Urine WBC 0-1/hpf Ur Squamous Epith Cells 0-1 /hpf Urine Bacteria None seen Vol Urine Centrifuged 10ml (spun) 07/12/25 07/12/25 06:23 06:55 WBC RBC Hgb Hct MCV MCH MCHC RDW Plt Count Neut % (Auto) Lymph % (Auto) Mercer % (Auto) Eos % (Auto) Baso % (Auto) Neut # (Auto) Lymph # (Auto) Mercer # (Auto) Eos # (Auto) Baso # (Auto) VBG pH 7.12 L* 7.15 L* VBG pCO2 83.3 H 81.7 H VBG pO2 61 H 43 VBG HCO3 27 28 VBG Total CO2 27 28 VBG O2 Saturation 80 H 62 L VBG Base Excess -4.1 L -2.4 L FiO2 % 70 % 50 % Sodium Potassium Chloride Carbon Dioxide BUN Creatinine Estimated GFR BUN/Creatinine Ratio Glucose Calcium Magnesium Troponin I Urine Color Urine Appearance Urine pH Ur Specific [place] Urine Protein Urine Glucose (UA) Urine Ketones Urine Occult Blood Urine Nitrate Urine Bilirubin Urine Urobilinogen Ur Leukocyte Esterase Urine RBC Urine WBC Ur Squamous Epith Cells Urine Bacteria Vol [facility]rine Centrifuged [facility] Fasciculations Tremor Ataxic gait Atrophy of muscle of both hands Weakness Paresthesia Social History household members: spouse alcohol intake: never Discharge Plan Discharge Plan Patient Disposition: Xfer Acute Care Hospital Visit Report/Discharge Packet Stand Alone Forms: Stroke Signs & Symptoms Discharge Data Primary Care Provider: Poppy Ng Attending Provider: Raad Zhou Admit Date/Time: 07/11/25 05:42
--- NOTE | 2025-07-12 08:31 | OT.IPNOTE ---
OT consult received and chart reviewed. Pt had a medical emergency this morning. On speaking with Nsg, pt is not medically appropriate for an OT eval today. Will re-assess pts appropriateness for eval tomorrow.
[2025-07-12] MEDS: LACTATED RINGERS 1,000 ML 125 ML IV (09:14)
[2025-07-12 10:16] LABS: Allen Test for ABG Passed? Positive; Blood Gas Collection Site Right Radial; Blood Gas Mode Assist Cont Ventilat; Delivery System Adult Ventilator; HCO3 ABG 28 mmol/L (23-27); Oxygen Saturation ABG 100 % (95-100); PCO2 ABG 37.7 mmHg (35-45); PEEP 5; PO2 ABG 169 mmHg (80-100); TCO2 ABG 27 mmol/L (23-27)
--- NOTE | 2025-07-12 11:02 | CM.DANOTE ---
B DCP Assessment note pt is a 74yo F here after a GLF, PMH of ALS. earlier this morning, code blue was called due to pt's upper airway muscles no longer working appropriately. needed to be intubated. NURSE PRACTITIONER HOME ASSESSMENTS reviewed EMR per nursing staff/provider, plan to transfer to higher level of care today. [facility] to accept. transport time pending. multiple family members at bedside. P: transfer to [facility] today. no further CM needs at this time. will continue to follow closely in case any should arise SHREE Chang Discharge Planning/Care Management Advanced directive, confirm from FAMILY Start: 07/11/25 15:08 Freq: Q24H Status: Active Protocol: Document 07/11/25 15:08 CIPRIANO (Rec: 07/11/25 17:53 [email or web address] [id number]) Advance Directive, confirm on record Time 17:53 Person contacted Domingo Cartagena Copy received No CM Discharge Assessment Start: 07/11/25 11:14 Freq: Status: Active Protocol: Document 07/12/25 11:01 (Rec: 07/12/25 11:02 [id number]) Discharge Planning Assessment Assigned Discharge Shree Rosario [employer] Worker Provider Poppy Ng Insurance [employer] [facility] DPOA/Assigned Tripp, spouse Designee Name Contact Information [phone] Advance Directives? Yes Advance Directives No on File History Provided By Patient,Family Member Prior Living House Arrangements Household Members spouse Discharge Plan Transfer to Higher Level of Care Review Status In Process Please Provide Date 07/12/25 Initial DC Assessment Was Performed Next Review Type Continued Stay Review
[2025-07-12] MEDS: NOREPINEPHRINE BIT/0.9 % NACL 4 MG/250 ML PLAST..BAG 23.625 MG IV (11:33)
--- NOTE | 2025-07-12 12:34 | PC.NURSE ---
[facility] arrived to room at approximately 1235. Report given to keno attendant Griselda. Pt following commands, able to shake head yes and no. Pupils equal and reactive. Domingo at bedside. Pt switched to transport monitoring and ventilator, tolerated transition. Pt transferred to stretcher, tolerated transition to transport ventilator. Pt and transport team left room to ambulance at approx. 1201. Report given to receiving RN at [facility] at [phone].
[2025-07-12 13:36] LABS: Labcorp Creatine Kinase MB 5.0 ng/mL (0.0-5.3)
--- NOTE | 2025-07-20 16:15 | ST.OPDC.SWTH ---
Visit Care Team Role Provider Type Poppy Ng MD Primary Care Provider Physician Specialty: Internal Medicine Address: [address] [place] [address], [id number] Email: Jason Rodríguez DO Emergency Provider Physician Specialty: Emergency Medicine Address: [address] [place] [address], [id number] Phone: Fax: Email: [email or web address] Raad Zhou MD Admit Provider Physician Attending Provider Specialty: Internal Medicine Address: [address] [place] [address], [id number] Fax: Email: [email or web address] Pt discharged from d/t her son calling and stating Etta .
== END 2025-07-12 12:01 | disposition short-term general hospital (02) | DRG 85 ==
LOC: ED 05:34 → AC 05:46 → ICU 07-12 07:29 → AC 07-12 09:37 → ICU 07-12 09:37
PROVIDERS: Internal Medicine; Admitting Provider Internal Medicine; Emergency Provider Family Medicine; PCP Internal Medicine; Visit Provider Internal Medicine
DX: S06.5X0A Traumatic subdural hemorrhage without loss of consciousness, initial encounter (principal); J96.01 Acute respiratory failure with hypoxia; J96.02 Acute respiratory failure with hypercapnia; E87.1 Hypo-osmolality and hyponatremia; G12.21 Amyotrophic lateral sclerosis; J45.901 Unspecified asthma with (acute) exacerbation; R74.01 Elevation of levels of liver transaminase levels; M47.816 Spondylosis without myelopathy or radiculopathy, lumbar region; I10 Essential (primary) hypertension; E03.9 Hypothyroidism, unspecified; K21.9 Gastro-esophageal reflux disease without esophagitis; R53.1 Weakness; W18.30XA Fall on same level, unspecified, initial encounter; Z23 Encounter for immunization
CPT/HCPCS: 36415; 36600; 70450; 71045; 72125; 72131; 80048; 80053; 81001; 82553; 82805; 83690; 83735; 83880; 84443; 84484; 85025; 90471; 92950; 94002; 94640; 94660; 96365; 96366; 96375; 96376; 99285; 90715; J0165; J0696; J0780; J1171; J2060; J2405; J2470; J2704; J2765; J3360; J3475; J3490; J7040; J7050; J7120; J7613